=== PATIENT | male | born 1945 | race Caucasian/White ===

== ENCOUNTER → 2017-02-09 | Outpatient (CLI) | payer OTHER, MEDICARE | LOC: BHFA 10:30 | PROVIDERS: ATTEND Internal Medicine Cardiovascular Disease | DX: I10 Essential (primary) hypertension (principal); Z79.899 Other long term (current) drug therapy ==

== ENCOUNTER 2017-11-19 19:30 | Emergency (ER) | payer OTHER, MEDICARE ==
[2017-11-19] MEDS ORDERED: SILVER NITRATE APPLICATOR 1 APPL TP ONE (19:50)
[2017-11-19] MEDS ORDERED: OXYMETAZOLINE 30 ML NASAL SPRAY EACHNARE ONE (19:50)
[2017-11-19 19:52] VITALS: RESP 16
[2017-11-19] MEDS ORDERED: LIDOCAINE HCL 4% TOPICAL SOLN 50ML TP ONE ×3 (19:52→23:07)
--- NOTE | 2017-11-19 21:26 | EDPHY ---
H & P Smoking Status: Former smoker Time Seen by Provider: 11/19/17 19:46 HPI/ROS: This patient had a sinus surgery with Dr. Doshi this morning at 8:00 a.m. without complications. However he developed a bloody nose from the left naris this starting around 930 this morning with persistent bleeding throughout the day. The epistaxis did not resolve with Afrin nasal spray. He reports that he has had persistent bleeding since shortly after he came home from the sinus surgery. He placed a call to the on-call physician for [facility]NT but did not receive a call back. He denies any complaints other than the moderate bleeding from the left naris. He is able to breathe through both nostrils. ROS: Constitutional: No significant fatigue Cardiovascular: No significant lightheadedness or heart palpitations. No chest pain. HEENT minimal discomfort. No bleeding from the right naris. 5 point ROS is otherwise negative. (Antonio Ortega) Physical Exam: Physical Exam Vital signs are normal. General: No acute distress HEENT: Nose: Mild to moderate bleeding from the left knee dairy. On exam this is coming from an area posterior to the anterior septum. No bleeding from the right naris. Eyes: Pupils equal and react to light. Extraocular motions are intact. Lungs: No respiratory distress. Cardiac: Brisk capillary refill is intact throughout. Pulses are 2+ and symmetric in the affected extremity. Skin: No rash or pallor. Neuro: Alert and oriented x3 with no sensorimotor deficits. (Antonio Ortega ) Constitutional: Initial Vital Signs Temperature (C) 36.8 C 11/19/17 19:45 Heart Rate 55 L 11/19/17 19:45 Respiratory Rate 16 11/19/17 19:45 Blood Pressure 152/78 H 11/19/17 19:45 O2 Sat (%) 92 11/19/17 19:45 O2 Delivery Mode Room Air Allergies/Adverse Reactions: No Known Allergies Allergy (Unverified 11/19/17 20:50) Home Medications: Medication Instructions Recorded Amlodipine Besylate 11/19/17 Azithromycin [Zithromax] 250 mg PO DAILY #3 tab 11/19/17 Chlorthalidone 11/19/17 Clonidine 11/19/17 Crestor 11/19/17 Irbesartan 11/19/17 Spironolactone 11/19/17 ZYRTEC 11/19/17 Zocor 11/19/17 MDM/Departure - [facility] Procedures: Procedure: Epistaxis control. After verbal consent was obtained, the patient was anesthetized with [a 50-50 mix of 4% lidocaine with 1-1000 concentration epinephrine. I sprayed this the patient's nares using 10 mL transient 20-gauge Angiocath 2 mL in each nares. This was followed by soaking cotton ball on the same medication and placed in the right nares for 15 minutes. Epistaxis appears to be posterior to anterior septum. Patient had recurrence of bleeding after medications above so I then placed a rhino rocket 7.5 cm balloon to the left knee dairy in standard protocol. Patient tolerated this well. It was taped in place. Following the procedure the patient was re-examined and the bleeding was well controlled. There were no complications. The procedure was performed by myself. (Antonio Ortega) Medications Given: Discontinued Medications Azithromycin (Zithromax) 500 mg PO EDNOW ONE PRN Reason: Protocol Stop: 11/19/17 21:53 Last Admin: 11/19/17 22:11 Dose: 500 mg Epinephrine (Adrenalin Chloride) 10 mg NASAL EDNOW ONE Stop: 11/19/17 19:54 Last Admin: 11/19/17 20:57 Dose: Not Given Lidocaine HCl (Lidocaine Hcl 4% Topical Solution) 20 ml TP EDNOW ONE Stop: 11/19/17 19:53 Last Admin: 11/19/17 20:54 Dose: 1 btl Lidocaine HCl (Lidocaine Hcl 4% Topical Solution) 30 ml TP EDNOW ONE Stop: 11/19/17 19:53 Last Admin: 11/19/17 20:58 Dose: Not Given Lidocaine HCl (Lidocaine Hcl 4% Topical Solution) 1 ml TP EDNOW ONE Stop: 11/19/17 23:08 Last Admin: 11/19/17 23:13 Dose: Not Given Lidocaine/Epinephrine (Lidocaine 1%-Epi 1:100,000) 20 ml NB EDNOW ONE Stop: 11/19/17 23:08 Last Admin: 11/19/17 23:12 Dose: Not Given Lorazepam (Ativan 1 Mg Prepack#4) 1 btl TAKEHOME EDNOW ONE Stop: 11/19/17 21:57 Last Admin: 11/19/17 22:11 Dose: 1 btl Oxymetazoline HCl (Afrin Nasal [place]) 2 sprays EACHNARE EDNOW ONE Stop: 11/19/17 19:51 Last Admin: 11/19/17 20:56 Dose: Not Given Silver Nitrate/Potassium Nitrate (Silver Nitrate Applicator) 1 each TP EDNOW ONE Stop: 11/19/17 19:51 Last Admin: 11/19/17 20:56 Dose: 1 each ED Course/Re-evaluation: I Spoke with Dr. Saji Linares, ENT on-call for Dr. Manzanares who suggests expandable Merocel sponge or rhino rocket for hemostasis if other methods fail. The patient was discharged home but returned shortly thereafter due to right epistaxis Patient returned at 11:00 p.m. With epistaxis from the right naris a, hemostasis and left naris rhino rocket. I signed this case over to our oncoming physician Dr. Neftaly Gallegos who will treat the right epistaxis with the plan to transfer to the main emergency department if he is unable to control the right epistaxis as per earlier conversation with Dr. Linares (Antonio Ortega) Care was assumed at 2300 hr. The gentleman had left and once he got home, some 5 min away, he started bleeding again so he came right back. As chart was open I picked it up. Of note, I have had the opportunity to review the chart and discussed the case with Dr. Ortega. Just as it is indicated in the note, the only bleeding earlier had been the left nares. However once home in the right ear started bleeding. He was pretty in fact that it was not coming from the back of his throat but in fact the right nares. Upon arrival he has a make shift nasal tampon in place by way of Kleenex rolled and is holding in place and there is no active bleeding at this moment in time however the make shift nasal tampon is indeed as some blood at the proximal portion. Of note he has had no other bleeding problems in respect to bleeding other sources and easy bruising. The surgical case had involve both sides. He presents with a Epistat in the left nare, where there is no active bleeding. The patient had the surgery 1st thing this morning. He returned home and was eating and taking fluids well. He reports no lightheadedness nor sense of unsteadiness on his feet. His fluid intake and output has been normal. On my exam: Gen: Well developed, well nourished. Nontoxic. [afebrile] [VSS]. Pleasant, then, well-spoken man who is steady on his feet and has good color HEENT: Normocephalic. Nose: There is no active bleeding at this time. Left naris is occluded by a Epistat. The right knee air reveals some scab formation on the septum which is indeed straight, and there appears to be a dampness to 1 spot that is approximately 3 cm into the nares. It is not really bleeding at this time. The posterior pharynx reveals some mild amount of dried, old blood. Throat: Membranes are moist. Oropharynx is without erythema or exudate. Normal phonation. Neck: Trachea is in the ML. No laryngeal tenderness. Lungs: No air hunger. No respiratory distress. Skin: Good color, without pallor. There is no diaphoresis. Skin is warm and dry , without diaphoresis. There is a small amount of depression of the left nares by the Epistat anchor for the balloon and this will be adjusted. Epistaxis control: Nose was examined with a headlamp as well as nasal speculum. No active bleeding seen at this time except for the area in question as noted above. A midst of 3 cc of lidocaine 4% and 3 cc of 1% lidocaine with epi were aerosolized in the right ear. Over the ensuing 10 min he had recurrent bleeding. Thereafter a make shift nasal tampon of a 2 x 2 ruled on a band at forceps was placed into the right near this was soaked with 4 cc of a 50 50 mixture of the lidocaine 4% and 1% lidocaine with epinephrine. He tolerated this well. This was then removed in the area examined, again, this time there is no active bleeding. Has a dry base from prior cautery. His lab to wait for some 20 min again and was discharged with no active bleeding at this point in time. Should he have more bleeding while at home he is try Afrin as long as it is a small amount of bleeding, but then return in 20 min if it does not cease. (Neftaly Gallegos) - Depart Disposition: Home, Routine, Self-Care Clinical Impression: Postoperative sinus surgery epistaxis Condition: Good Instructions: Lorazepam (By mouth), Nosebleed (ED) Additional Instructions: Diagnosis: Epistaxis-resolved Plan: Humidifier Avoid blowing your nose You have a"rhino rocket" placed in your nose. Keep this in place for the next 3 days. Zithromax antibiotic for a few days to prevent infection Ativan at bedtime if needed for insomnia -1 mg. No driving, alcohol work on Ativan Follow up with Dr. Doshi on Wednesday or Wednesday for removal of the balloon. Return to [facility] Emergency Department if you develop bleeding despite treatment plan Prescriptions: Azithromycin [Zithromax] 250 mg PO DAILY #3 tab Referrals: Shane Starks MD [Primary Care Provider] - As per Instructions
[2017-11-19] MEDS ORDERED: AZITHROMYCIN 250 MG TAB PO ONE (21:52)
[2017-11-19] MEDS ORDERED: LORAZEPAM 1 MG PREPACK#4 BTL TAKEHOME ONE (21:56)
[2017-11-19] MEDS ORDERED: LIDO/EPI 1% **Not for Epidural 20 ML MDV ONE (23:05)
[2017-11-19] MEDS ORDERED: LIDOCAINE HCL 4% TOPICAL SOLN 50ML ONE (23:05)
[2017-11-19] MEDS ORDERED: LIDO/EPI 1% **Not for Epidural 20 ML MDV NB ONE (23:07)
[2017-11-20 00:39] VITALS: BP 142/75; PULSE 74; TEMP 97.7; O2SAT 94
== END 2017-11-20 00:38 | disposition home or self-care (01) ==
LOC: CED 19:30
PROC: 2Y41X5Z Packing of Nasal Region using Packing Material (ICD-10-PCS; principal; 2017-11-19)
DX: R04.0 Epistaxis (principal); J95.830 Postprocedural hemorrhage of a respiratory system organ or structure following a respiratory system procedure; Z87.891 Personal history of nicotine dependence
CPT/HCPCS: 30903; 99282; 99283; J0171

== ENCOUNTER 2017-11-20 10:05 | Emergency (ER) | payer OTHER, MEDICARE ==
[2017-11-20 10:19] VITALS: RESP 16; TEMP 97.2
--- NOTE | 2017-11-20 11:06 | EDPHY ---
H & P Time Seen by Provider: 11/20/17 10:12 HPI/ROS: CHIEF COMPLAINT: Epistaxis HISTORY OF PRESENT ILLNESS: Patient complaining of continued nosebleed. He had turbinates surgery yesterday morning and was seen in this ED twice last night. He currently has a rhino rocket in the left naris. He states it has continued to ooze. Contents of 10 point review of systems otherwise negative except for what is mentioned in HPI. General Appearance: Alert, no distress. Eyes: Pupils equal and round no pallor or injection. ENT, Mouth: Mucous membranes moist. Rhino rocket in place to the left knee where some oozing around it. Right near with area of cautery visible. No active bleeding. Posterior oropharynx with some blood-tinged mucus no active bleeding. Respiratory: There are no retractions, lungs are clear to auscultation. Cardiovascular: Regular rate and rhythm. Neurological: Awake and alert, nonfocal exam, cranial nerves intact. Skin: Warm and dry, no rashes. Musculoskeletal: Neck is supple nontender. Extremities are symmetrical, full range of motion, no edema. Psychiatric: Patient is oriented X 3, there is no agitation. Medical/surgical history: Turbinate surgery yesterday. Social history: Previous smoker Smoking Status: Former smoker Constitutional: Initial Vital Signs Temperature (C) 36.2 C 11/20/17 10:17 Heart Rate 53 L 11/20/17 10:17 Respiratory Rate 16 11/20/17 10:17 Blood Pressure 139/71 H 11/20/17 10:17 O2 Sat (%) 98 11/20/17 10:17 O2 Delivery Mode Room Air Allergies/Adverse Reactions: No Known Allergies Allergy (Unverified 11/19/17 20:50) Home Medications: Medication Instructions Recorded Amlodipine Besylate 11/19/17 Azithromycin [Zithromax] 250 mg PO DAILY #3 tab 11/19/17 Chlorthalidone 11/19/17 Clonidine 11/19/17 Crestor 11/19/17 Irbesartan 11/19/17 Spironolactone 11/19/17 ZYRTEC 11/19/17 Zocor 11/19/17 Medical Decision Making ED Course/Re-evaluation: Discussed in detail with Dr. Linares who had been consulted yesterday at the time of patient's ED visit then. He agreed to see patient over at [facility] ED if transferred. Discussed options with patient he will go by private vehicle but wants to be seen by consulted today. Discussed with Dr. Edwards at [facility] ED who accepts patient in transfer. Differential Diagnosis: Differential diagnosis includes but is not limited to anterior epistaxis, posterior epistaxis, postsurgical complication/infection. Patient hemodynamically stable in the emergency department with no active bleeding. Patient is not on blood thinners and has held his baby aspirin over the last 48 hr. Continue bleeding likely represents normal postsurgical sequelae. Patient asking for consultation with ENT and was transferred by private vehicle to [facility] ED for further evaluation. Departure - Departure Disposition: Home, Routine, Self-Care Clinical Impression: Epistaxis, recurrent Referrals: Sarthak Singh MD [Medical Doctor] - As per Instructions
[2017-11-20 12:00] VITALS: BP 132/75; PULSE 50; O2SAT 96
--- NOTE | 2017-11-20 12:12 | EDPHY ---
ED Progress Note Narrative: The patient no active significant bleeding in the emergency department. He has a nasal packing in place and will follow up with his ENT physician on Wednesday. He did not receive a comprehensive evaluation in the emergency department.
== END 2017-11-20 12:18 | disposition home or self-care (01) ==
LOC: CED 10:05
DX: R04.0 Epistaxis (principal); Z87.891 Personal history of nicotine dependence

== ENCOUNTER → 2018-02-25 | Outpatient (CLI) | payer OTHER, MEDICARE ==
[~2018-02-25] MED LIST: IOPAMIDOL (ISOVUE 370) 100 ML BTL IV ONE
== END ==
LOC: FIMAGING 10:58
PROVIDERS: ATTEND Internal Medicine Cardiovascular Disease
DX: J32.0 Chronic maxillary sinusitis (principal); G31.9 Degenerative disease of nervous system, unspecified; I65.23 Occlusion and stenosis of bilateral carotid arteries; R91.1 Solitary pulmonary nodule; I25.10 Atherosclerotic heart disease of native coronary artery without angina pectoris; M50.30 Other cervical disc degeneration, unspecified cervical region; M48.02 Spinal stenosis, cervical region
CPT/HCPCS: 70450; 70496; 70498; Q9967; 82565-PO

== ENCOUNTER 2018-02-26 13:30 | Inpatient (IN) | payer OTHER, MEDICARE ==
[2018-02-26] MEDS ORDERED: HEPARIN 10,000 UNIT/10 ML MDV (1,000 UNIT/ML) IVP ONE ×2 (14:03→14:45)
--- NOTE | 2018-02-26 14:11 | SOAPPROG ---
SOAP Progress Note Assessment/Plan: Assessment: 72-year-old male with recent bout of amaurosis in the right eye/he has had no other symptoms CTA reveals 90% plus left carotid stenosis and a 80% plus right carotid stenosis Past history includes a coronary stents x3 several years ago/no other major hospitalizations or surgeries problems Review of systems is negative on a full 10 point review of systems except as related to the HPI. Specifically he is an ex-smoker over 20 years ago and he does have hypertension Allergies none Medications amlodipine, clonidine, aspirin, Crestor, Zetia, spironolactone, chlorthalidone, irbesartan HEENT without bruits, no cervical masses or adenopathy Chest clear Cor regular rhythm without murmurs Abdomen soft nontender Extremities benign with full range of motion full pulses Neuro exam physiologic and symmetric Psych alert oriented and cooperative Skin no obvious lesions Plan: Admit for IV heparin, medical evaluation, left carotid endarterectomy on Wednesday02/26/18 14:07 ICD10 Worksheet Patient Problems: Problems Problem Status Onset Carotid stenosis, bilateral Acute - ICD10 Problem Qualifiers (1) Carotid stenosis, bilateral
[2018-02-26] MEDS ORDERED: D5W 1/2 NS W/ 20 KCl/L 1,000 ML IV SCH (14:15)
[2018-02-26] MEDS ORDERED: HEPARIN 10,000 UNIT/10 ML MDV (1,000 UNIT/ML) IVP PRN ×2 (14:31→14:33)
[2018-02-26 14:36] LABS: PLATELET COUNT 262 10^3/uL (150-400)
[2018-02-26 14:55] LABS: INR 0.94 (0.83-1.16); PROTIME(PATIENT) 12.8 SEC (12.0-15.0)
[2018-02-26] MEDS: HEPARIN/DEXTROSE 500 ML IV SCH (15:07)
--- NOTE | 2018-02-26 15:26 | PDMN ---
Medical Necessity Medical necessity: C/M review: est. > 2 MN LOS for eval and TX of acute and persistent left carotid stenosis, recent bout of amaurosis right - patient has no other symptoms, CTA reveals 90% plus left carotid stenosis and 80% stenosis plus right carotid stenosis requiring planned Hospitalist consult for medical evaluation, planned 02/28/2018 surgery - left carotid endarterectomy - Inpatient surgery per Medicare guidelines, ongoing IV Heparin infusion, IV fluids in SDU, comorbid history coronary stents x 3 several years ago per General Surgery progress note.
--- NOTE | 2018-02-26 17:42 | CPEKG ---
Heart Rate: 50 RR Interval: 1200 P-R Interval: 188 QRSD Interval: 104 QT Interval: 440 QTC Interval: 402 P Purling: 65 QRS Purling: 36 T Wave Purling: 63 EKG Severity - BORDERLINE ECG - EKG Impression: SINUS RHYTHM EKG Impression: BORDERLINE T ABNORMALITIES, ANT-LAT LEADS Electronically Signed By: Saeid Schwab 28-Feb-2018 05:51:30
--- NOTE | 2018-02-26 18:20 | GCON ---
[f rep st] CONSULTATION DATE OF CONSULTATION: 02/26/2018 REASON FOR CONSULTATION: I was asked by Dr. Clements to see Mr. Raymundo in regard to his medical issues. HISTORY OF PRESENT ILLNESS: This is a 72-year-old man who presents after having a TIA a. This occur red Wednesday. If it is described as a window pane covering his entire right eye consistent with amauro sis. This resolved after a few minutes. He saw his 's lubricator granulator who thought that he may h ave had a TIA, recommended that he contact his primary care physician. He follows with [facility] Wall for heart disease, called Dr. Wall. A CT angio of his head and neck was ordered which was positive . He is thus arranged for a direct admission to Dr. Clements. He has never had a stroke before. He randall d no weakness or numbness or confusion or garbled speech associated with this event. He is taking as pirin for heart disease. He tells me he has never had a problem with hyperlipidemia. He continues to run. He is able to get his heart rate up without shortness of breath, or chest pain. PAST MEDICAL HISTORY: 1. Hypertension, well controlled on medications. 2. Coronary artery disease, status post PCI x3 to the LAD in 2000. 3. Bone spur removal. 4. Lasix surgery. 5. Recent sinus surgery. MEDICATIONS: Please see medication reconciliation. ALLERGIES: No known drug allergies. FAMILY HISTORY: Reviewed, noncontributory. SOCIAL HISTORY: He quit drinking in 1998. He quit smoking in 1978. REVIEW OF SYSTEMS: A 10-point review of systems is conducted and is negative except per HPI. PHYSICAL EXAM: VITAL SIGNS: Blood pressure 157/81, heart rate 52, respiration rate 14, saturating 9 7% on room air. Temperature is 37.3. GENERAL: Mr. Raymundo is a pleasant man who is resting comfortabl y. No acute distress. HEENT: Shows him to be normocephalic, atraumatic. CARDIOVASCULAR: Regular rate and rhythm. No murmurs, rubs, or gallops. PULMONARY: Lungs clear to auscultation bilaterally. ABDOMEN: Soft, nontender, nondistended. SKIN: Shows no rash. : No Mathew. NEUROLOGIC: Shows cranial nerves 2 through 12 to be intact. He is alert, oriented x3. Motor is intact in the upper a nd lower extremities. Sensation to light touch is intact in the upper and lower extremities. Patell ar reflexes are diminished, but symmetric bilaterally. PSYCHIATRIC: Shows normal mood and affect. LABS: CBC is normal. INR 0.94. His chemistries were rejected. DATA: 1. I reviewed his chart including Dr. Clements' an admission note. 2. I reviewed his CT angiogram this shows almost near occlusion of the left internal carotid as well as 70% of the right. 3. TIA with severe carotid artery stenosis: Agree that CEA is indicated. He will be on a heparin d rip until then. He will get q.4 hours neuro checks. CEA is planned for Wednesday. Initial plan will b e left-sided CEA Wednesday, then in 2 and a half weeks right-sided CEA. He is currently not taking aspi rin, would confirm tomorrow with Dr. Clements whether he should be on aspirin in addition to heparin tobi sigala. I will check lipids in the morning. 4. Coronary artery disease, status post PCI to the LAD: He is able to attain a high heart rate with out any angina or shortness of breath. Based on this we will get an EKG. There were no significant issues with his EKG, he should proceed to surgery with no additional cardiac workup at this time. 5. Hypertension: Will continue his antihypertensive. 6. Pulmonary nodule seen on the CT angio: This will need to be followed as an outpatient. /[id number]/MODL
[2018-02-26] MEDS ORDERED: amLODIPine BESYLATE 5 MG TAB PO SCH (21:00)
[2018-02-26] MEDS ORDERED: IRBESARTAN 150 MG TAB PO SCH (21:00)
[2018-02-26] MEDS ORDERED: ROSUVASTATIN CALCIUM 20 MG TAB PO SCH (21:00)
[2018-02-26] MEDS ORDERED: EZETIMIBE 10 MG TAB PO SCH (21:00)
[2018-02-26] MEDS: traZODone 50 MG TAB PO SCH (21:16)
[2018-02-26] MEDS: IPRATROPIUM 0.06% NASAL SPRAY EACHNARE SCH (21:20)
[2018-02-27] MEDS: IRBESARTAN 150 MG TAB PO SCH ×2 (08:25→19:23)
[2018-02-27] MEDS: CHLORTHALIDONE 25 MG TAB PO SCH (08:25)
[2018-02-27] MEDS: SPIRONOLACTONE 50 MG TAB PO SCH (08:25)
[2018-02-27] MEDS: IPRATROPIUM 0.06% NASAL SPRAY EACHNARE SCH ×2 (08:27→21:02)
--- NOTE | 2018-02-27 11:23 | GCON ---
[f rep st] CONSULTATION PEDIATRIC PHYSICAL THERAPY ASSISTANT CONSULTATION REASON FOR CONSULTATION: Vision loss, carotid stenosis. HISTORY OF PRESENT ILLNESS: the patient is a very pleasant 72-year-old white male with a past medica l history of coronary artery disease for which he underwent stent placement, hypertension. He presen ts after having a TIA. Apparently, this occurred Wednesday with amaurosis fugax of the right eye. 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 CT angio of the head and neck were ordered, which were positive for carotid occlusion. He was admitted to the intensive care unit and placed on a heparin drip. Currently, he is resting comfortably and feels quite well. He denies any cough or production of sput um. There is no chest pain, pleuritic-type chest pain or angina equivalent. There is no fever or ni ght sweats. REVIEW OF SYSTEMS: 10-point review of systems was performed, is negative, except for what is listed in HPI. PAST MEDICAL HISTORY: Significant for hypertension, coronary artery disease. PAST SURGICAL: Cardiac stents x3, bone spur removal, Lasix surgery, and recent sinus surgery. ALLERGIES: No known to medications. SOCIAL HISTORY: Previous heavy smoker, none since 1978. Denies any alcohol use. He is , has good family support. PHYSICAL EXAMINATION: VITAL SIGNS: Blood pressure is 131/69, pulse is 50, respirations 15, temperat ure 36.6, oxygen saturation is 96% on room air. GENERAL: He is a well-developed, well-nourished, 72 -year-old white male who is resting comfortably in no acute distress. HEENT: Eyes: [place]. EOMI. T hroat shows no erythema or tonsillar hypertrophy. NECK: Supple. No cervical adenopathy. HEART: R egular rate and rhythm without murmurs, rubs, or gallops. LUNGS: Diminished breath sounds, but no w heeze. ABDOMEN: Soft, nontender. Bowel sounds are present in all 4 quadrants. EXTREMITIES: No cl ubbing, cyanosis, or edema. LABORATORY DATA: White count is 8.9, hemoglobin 15, hematocrit 42, platelet count is 262. INR is 0. 94. Sodium 129, potassium 4.0, chloride 97, CO2 is 20, BUN 23, creatinine is 0.7, glucose is 97. IMPRESSION: 1. Amaurosis fugax. 2. Transient ischemic attack. 3. Carotid stenosis bilaterally. 4. History of coronary artery disease. 5. History of hypertension. RECOMMENDATIONS: 1. Agree with anticoagulation with heparin. 2. Patient is scheduled for carotid endarterectomy tomorrow. 3. DVT and PE prophylaxis. 4. Stress ulcer prophylaxis. /[id number]/MODL
--- NOTE | 2018-02-27 12:22 | SOAPPROG ---
DEREK Progress Note Assessment/Plan: Assessment: 72-year-old male with recent bout of amaurosis in the right eye/he has had no other symptoms CTA reveals 90% plus left carotid stenosis and a 80% plus right carotid stenosis Past history includes a coronary stents x3 several years ago/no other major hospitalizations or surgeries problems Review of systems is negative on a full 10 point review of systems except as related to the HPI. Specifically he is an ex-smoker over 20 years ago and he does have hypertension Allergies none Medications amlodipine, clonidine, aspirin, Crestor, Zetia, spironolactone, chlorthalidone, irbesartan HEENT without bruits, no cervical masses or adenopathy Chest clear Cor regular rhythm without murmurs Abdomen soft nontender Extremities benign with full range of motion full pulses Neuro exam physiologic and symmetric Psych alert oriented and cooperative Skin no obvious lesions Plan: Admit for IV heparin, medical evaluation, left carotid endarterectomy on Wednesday02/26/18 14:07 02/27/18 12:20 no new symptoms or findings/cleared by Internal Medicine for his carotid surgery / risks and options fully discussed and he wishes to proceed Mild hyponatremia at 129 Plan left carotid endarterectomy in the a.m. / right carotid endarterectomy in 2 -3 weeks Objective: Vital Signs Temp Pulse Resp BP Pulse Ox 36.9 C 54 L 16 101/55 L 96 02/27/18 12:00 02/27/18 12:00 02/27/18 12:00 02/27/18 12:00 02/27/18 12:00 Laboratory Results 02/26/18 14:30 02/27/18 04:20 02/26/18 02/27/18 02/28/18 05:59 05:59 05:59 Intake Total 1376 Output Total 875 200 Balance 501 -200 PT 12.8 SEC (12.0-15.0) 02/26/18 14:30 INR 0.94 (0.83-1.16) 02/26/18 14:30 ICD10 Worksheet Patient Problems: Problems Problem Status Onset Carotid stenosis, bilateral Acute - ICD10 Problem Qualifiers (1) Carotid stenosis, bilateral
[2018-02-27] MEDS: HEPARIN/DEXTROSE 500 ML IV SCH (14:03)
--- NOTE | 2018-02-27 14:26 | HOSPPROG ---
Hospitalist Progress Note Assessment/Plan: 72 yo M with hx of TIA found to have bilateral carotid stenosis here for planned CEA # bilateral carotid stenosis: with near total occlusion of left ICA and 70% stenosis of the right, plan for CEA in am, on heparin gtt for now and monitoring in SDU # TIA: in the setting of above and with sxs of amaurosis fugax as presentation, as above # CAD: hx of PCI to LAD, no current chest pain, continue on statin # HTN: BP currently on the low end on his current regimen of clonidine, irbesartan and amlodipine, will monitor # pulmonary nodule---will require op f/u # IP status, will need > 48 hours stay given need for surgical intervention Care plan reviewed with Dr. Marie Subjective: no significant overnight events, patient feeling well Objective: Vital Signs Temp Pulse Resp BP Pulse Ox 36.9 C 54 L 16 101/55 L 96 02/27/18 12:00 02/27/18 12:00 02/27/18 12:00 02/27/18 12:00 02/27/18 12:00 Laboratory Results 02/26/18 14:30 02/27/18 04:20 02/26/18 02/27/18 02/28/18 05:59 05:59 05:59 Intake Total 1376 Output Total 875 200 Balance 501 -200 PT 12.8 SEC (12.0-15.0) 02/26/18 14:30 INR 0.94 (0.83-1.16) 02/26/18 14:30 awake alert nad anicteric op clear rrr no mrg cta b soft nt nd no cce warm dry well perfused oriented appropriate - Time Spent With Patient Time Spent with Patient: greater than 35 minutes Time Spent with Patient: Greater than 35 minutes spent on this patients care, greater than 50% of time spent counseling, educating, and coordinating care regarding the above mentioned plan. ICD10 Worksheet Patient Problems: Problems Problem Status Onset Carotid stenosis, bilateral Acute
[2018-02-27] MEDS: amLODIPine BESYLATE 5 MG TAB PO SCH (19:23)
[2018-02-27] MEDS: ROSUVASTATIN CALCIUM 20 MG TAB PO SCH (19:25)
[2018-02-27] MEDS: EZETIMIBE 10 MG TAB PO SCH (19:25)
[2018-02-27] MEDS: traZODone 50 MG TAB PO SCH (21:00)
[2018-02-28] MEDS: CHLORTHALIDONE 25 MG TAB PO SCH (07:50)
[2018-02-28] MEDS: SPIRONOLACTONE 50 MG TAB PO SCH (07:51)
[2018-02-28] MEDS: IRBESARTAN 150 MG TAB PO SCH ×2 (07:51→18:04)
--- NOTE | 2018-02-28 09:36 | SOAPPROG ---
DEREK Progress Note Assessment/Plan: Assessment: 72 y/o M 72-year-old male with recent bout of amaurosis in the right eye CTA reveals 90% plus left carotid stenosis and a 80% plus right carotid stenosis S: Sitting up in chair. No complaints. Denies stroke like symptoms. O: Alert Afebrile Neuro: CN 2-12 grossly intact Plan: Left CEA later today. Options and risks have been fully discussed and pt wishes to proceed. Ok to continue heparin drip up until surgery. 02/28/18 09:33 Objective: Vital Signs Temp Pulse Resp BP Pulse Ox 36.9 C 64 20 144/79 H 97 02/28/18 07:38 02/28/18 07:38 02/28/18 07:38 02/28/18 07:38 02/28/18 07:38 Laboratory Results 02/28/18 04:20 02/27/18 04:20 02/27/18 02/28/18 03/01/18 05:59 05:59 05:59 Intake Total 1376 1493 Output Total 875 200 Balance 501 1293 PT 12.8 SEC (12.0-15.0) 02/26/18 14:30 INR 0.94 (0.83-1.16) 02/26/18 14:30 ICD10 Worksheet Patient Problems: Problems Problem Status Onset Carotid stenosis, bilateral Acute
[2018-02-28] MEDS ORDERED: ceFAZolin 2 GM/DEXTROSE 100 ML IV ONE (10:00)
[2018-02-28] MEDS ORDERED: BUPIVACAINE 0.25% 30 ML SDV ONE (10:27)
[2018-02-28] MEDS ORDERED: THROMBIN (BOVINE) 20,000 UNIT SPRAY TP ONE (10:27)
[2018-02-28] MEDS ORDERED: PROTAMINE SULFATE 50 MG/5 ML VIAL IVP ONE (10:27)
[2018-02-28] MEDS ORDERED: LR 1,000 ML IV ONE (10:40)
--- NOTE | 2018-02-28 11:39 | PDANEPAE ---
ANE Past Medical History - Pulmonary History Hx Oxygen in Use at Home: No Hx Sleep Apnea: No Sleep Apnea Screening Result - Last Documented: Negative - Endocrine History Hx Diabetes: No - Chronic Pain History Chronic Pain: No ANE Review of Systems Review of Systems: ANE Patient History - Allergies Allergies/Adverse Reactions: No Known Allergies Allergy (Unverified 11/19/17 20:50) - Home Medications Home Medications: Chlorthalidone [Chlorthalidone 25 mg (*)] 50 mg PO DAILY 02/26/18 [Last Taken ] Ipratropium 0.06% Nasal [Atrovent 0.06% Nasal] 1 spray EACHNARE BID 02/26/18 [ Last Taken 02/26/18] Irbesartan [Avapro 150 mg (*)] 150 mg PO BID@02/26/18 [Last Taken 02/26/18 ] Rosuvastatin Calcium [Crestor 20mg (*)] 20 mg PO DAILY@02/26/18 [Last Taken 02/25/18] Spironolactone [Aldactone 50 MG (RX)] 50 mg PO DAILY 02/26/18 [Last Taken ] Zetia 10 MG (*) 10 mg PO DAILY@02/26/18 [Last Taken 02/26/18] amLODIPine BESYLATE [Norvasc 2.5 mg (*)] 2.5 mg PO DAILY@02/26/18 [Last Taken 02/25/18] clonIDINE [Catapres (*)] 0.1 mg PO DAILY@0702/26/18 [Last Taken 02/26/18] clonIDINE [Catapres (*)] 0.2 mg PO DAILY@1900 02/26/18 [Last Taken 02/25/18] - NPO status NPO Since - Liquids (Date): 02/28/18 NPO Since - Liquids (Time): 00:01 NPO Since - Solids (Date): 02/28/18 NPO Since - Solids (Time): 00:01 - Smoking Hx Smoking Status: Former smoker ANE Labs/Vital Signs - Labs Result Diagrams: 02/28/18 04:20 02/27/18 04:20 - Vital Signs Blood Pressure: 142/82 Heart Rate: 54 Respiratory Rate: 18 O2 Sat (%): 98 Height: 175.26 cm Weight: 73.9 kg ANE Physical Exam - Airway Neck exam: FROM Mallampati Score: Class 2 Mouth exam: normal dental/mouth exam - Pulmonary Pulmonary: no respiratory distress - Cardiovascular Cardiovascular: regular rate and rhythym, carotid bruit (art. line) - ASA Status ASA Status: III ANE Anesthesia Plan Anesthesia Plan: general endotracheal anesthesia Lines/Monitors: arterial line
[2018-02-28] MEDS ORDERED: HEPARIN 10,000 UNIT/10 ML MDV (1,000 UNIT/ML) ONE (11:44)
[2018-02-28] MEDS ORDERED: ROCURONIUM 100 MG/10 ML VIAL ONE (11:44)
[2018-02-28] MEDS ORDERED: METOCLOPRAMIDE 10 MG/2 ML VIAL ONE (11:44)
[2018-02-28] MEDS ORDERED: DEXAMETHASONE 4 MG/ML VIAL ONE ×2 (11:44)
[2018-02-28] MEDS ORDERED: LIDOCAINE 2% 100 MG/5 ML SYR ONE (11:44)
[2018-02-28] MEDS ORDERED: PROPOFOL 200 MG/20 ML VIAL ONE (11:44)
--- NOTE | 2018-02-28 11:59 | HOSPPROG ---
Hospitalist Progress Note Assessment/Plan: 72 yo M with hx of TIA found to have bilateral carotid stenosis here for planned CEA # bilateral carotid stenosis: with near total occlusion of left ICA and 70% stenosis of the right, s/p Left CEA and doing well thus far # TIA: in the setting of above and with sxs of amaurosis fugax as presentation, as above # CAD: hx of PCI to LAD, no current chest pain, continue on statin # HTN: BP currently on the low end on his current regimen of clonidine, irbesartan and amlodipine, will monitor # pulmonary nodule---will require op f/u # IP status, will need > 48 hours stay given need for surgical intervention Subjective: patient s/p CEA somnoeltn post procedure Objective: Vital Signs Temp Pulse Resp BP Pulse Ox 37.0 C 54 L 18 142/82 H 98 02/28/18 08:47 02/28/18 11:39 02/28/18 11:39 02/28/18 11:39 02/28/18 11:39 Laboratory Results 02/28/18 04:20 02/27/18 04:20 02/27/18 02/28/18 03/01/18 05:59 05:59 05:59 Intake Total 1376 1493 Output Total 875 200 Balance 501 1293 PT 12.8 SEC (12.0-15.0) 02/26/18 14:30 INR 0.94 (0.83-1.16) 02/26/18 14:30 somnolent post procedure anicteric rrr no mrg cta b ICD10 Worksheet Patient Problems: Problems Problem Status Onset Carotid stenosis, bilateral Acute
[2018-02-28] MEDS ORDERED: THROMBIN (BOVINE) 5,000 UNIT VIAL TP ONE (13:35)
[2018-02-28] MEDS ORDERED: SUGAMMADEX SODIUM 200 MG/2 ML VIAL IVP ONE (13:38)
[2018-02-28] MEDS ORDERED: ENALAPRILAT DIHYDRATE 1.25 MG/ML VIAL IVP PRN (13:57)
--- NOTE | 2018-02-28 14:04 | POSTOPPROG ---
Post Op Note Date of Operation: 02/28/18 Surgeon: Yordan Clements Cold Type Artist: Laura Hollins Anesthesiologist: Raman Beebe Anesthesia: GET(General Endotracheal) Pre-op Diagnosis: critical R>L carotid stenosis Post-op Diagnosis: same Procedure: L CEA c EEG monitoring and cervical LN bx Findings: long significant plaque, >90% stenosis, several areas of ulceration Inf/Abcess present in the surg proc area at time of surgery?: No EBL: 50-100 Complications: none Specimen(s): plaque and LN to pathology
[2018-02-28] MEDS ORDERED: fentaNYL 100 MCG/2 ML INJ IVP PRN (14:11)
[2018-02-28] MEDS ORDERED: ONDANSETRON 4 MG/2 ML VIAL IVP PRN (14:11)
[2018-02-28] MEDS ORDERED: NALOXONE HCL 0.4 MG/ML INJ IVP PRN (14:11)
[2018-02-28] MEDS ORDERED: ENALAPRILAT DIHYDRATE 1.25 MG/ML VIAL ONE (14:11)
[2018-02-28] MEDS ORDERED: ALBUTEROL 3 ML DEYVIAL IH PRN (14:11)
--- NOTE | 2018-02-28 14:13 | POSTANESTH ---
Post Anesthetic Evaluation Cardiovascular Status: Similar to Pre-Op Cond Respiratory Status: Similar to Pre-op Cond. Level of Consciousness/Mental Status: Alert and Oriented Pain Control: Adequate, Prn Tx Ordered Nausea/Vomiting Control: Adequate, Prn Tx Ordered Complications Possibly Related to Anesthesia: None Noted
[2018-02-28] MEDS: IPRATROPIUM 0.06% NASAL SPRAY EACHNARE SCH ×2 (15:17→22:44)
--- NOTE | 2018-02-28 16:21 | ASMTCMCOM ---
CM Note CM Note Notes: Pt was admitted with bilateral carotid stenosis and is s/p a CEA. He has a hx of TIA. No PT/OT orders. Pt lives with his in [place]. CM will follow for any d/c needs. Date Signed: 02/28/2018 04:20 PM Electronically Signed By:EMMA Rodney
[2018-02-28] MEDS: ROSUVASTATIN CALCIUM 20 MG TAB PO SCH (18:05)
[2018-02-28] MEDS: amLODIPine BESYLATE 5 MG TAB PO SCH (18:05)
[2018-02-28] MEDS: EZETIMIBE 10 MG TAB PO SCH (18:05)
[2018-02-28] MEDS ORDERED: ONDANSETRON 4 MG/2 ML VIAL ONE (18:26)
[2018-02-28] MEDS ORDERED: ONDANSETRON 4 MG/2 ML VIAL IVP ONE (18:45)
[2018-02-28] MEDS: traZODone 50 MG TAB PO SCH (22:12)
[2018-03-01] MEDS: SPIRONOLACTONE 50 MG TAB PO SCH (08:00)
[2018-03-01] MEDS: IPRATROPIUM 0.06% NASAL SPRAY EACHNARE SCH (08:01)
[2018-03-01] MEDS: CHLORTHALIDONE 25 MG TAB PO SCH (08:01)
[2018-03-01] MEDS: IRBESARTAN 150 MG TAB PO SCH ×2 (08:01→18:22)
[2018-03-01] MEDS: ASPIRIN 325 MG TAB PO SCH (08:34)
[2018-03-01] MEDS ORDERED: CEPACOL LOZENGE PO PRN (09:46)
[2018-03-01] MEDS ORDERED: SODIUM CHLORIDE 1,000 MG TAB PO ONE (10:45)
[2018-03-01] MEDS: ROSUVASTATIN CALCIUM 20 MG TAB PO SCH (18:18)
[2018-03-01] MEDS: SODIUM CHLORIDE 1,000 MG TAB PO SCH (18:19)
[2018-03-01] MEDS: EZETIMIBE 10 MG TAB PO SCH (18:24)
[2018-03-01] MEDS: amLODIPine BESYLATE 5 MG TAB PO SCH (18:24)
--- NOTE | 2018-03-01 18:24 | SOAPPROG ---
SOAP Progress Note Assessment/Plan: Assessment: 72-year-old male with recent bout of amaurosis in the right eye/he has had no other symptoms CTA reveals 90% plus left carotid stenosis and a 80% plus right carotid stenosis Past history includes a coronary stents x3 several years ago/no other major hospitalizations or surgeries problems Review of systems is negative on a full 10 point review of systems except as related to the HPI. Specifically he is an ex-smoker over 20 years ago and he does have hypertension Allergies none Medications amlodipine, clonidine, aspirin, Crestor, Zetia, spironolactone, chlorthalidone, irbesartan HEENT without bruits, no cervical masses or adenopathy Chest clear Cor regular rhythm without murmurs Abdomen soft nontender Extremities benign with full range of motion full pulses Neuro exam physiologic and symmetric Psych alert oriented and cooperative Skin no obvious lesions Plan: Admit for IV heparin, medical evaluation, left carotid endarterectomy on Wednesday02/26/18 14:07 02/27/18 12:20 no new symptoms or findings/cleared by Internal Medicine for his carotid surgery / risks and options fully discussed and he wishes to proceed Mild hyponatremia at 129 Plan left carotid endarterectomy in the a.m. / right carotid endarterectomy in 2 -3 weeks 03/01/18 18:22 DOING WELL FROM SURGERY/ NEURO INTACT/ WOUND OK/ AFEBRILE/ EATING WELL NEW PROBLEM WITH ASYMPTOMATIC HYPONATREMIA, NA 120/ PLAN SALT TABS, FLUID RESTRICTIONS Objective: Vital Signs Temp Pulse Resp BP Pulse Ox 37.0 C 60 18 166/80 H 94 03/01/18 16:43 03/01/18 16:43 03/01/18 16:43 03/01/18 16:43 03/01/18 16:43 Laboratory Results 02/28/18 04:20 03/01/18 14:10 02/28/18 03/01/18 03/02/18 05:59 05:59 05:59 Intake Total 1493 1220 550 Output Total 200 680 750 Balance 1293 540 -200 PT 12.8 SEC (12.0-15.0) 02/26/18 14:30 INR 0.94 (0.83-1.16) 02/26/18 14:30 ICD10 Worksheet Patient Problems: Problems Problem Status Onset Carotid stenosis, bilateral Acute - ICD10 Problem Qualifiers (1) Carotid stenosis, bilateral
[2018-03-01] MEDS: traZODone 50 MG TAB PO SCH (21:42)
[2018-03-02] MEDS: IPRATROPIUM 0.06% NASAL SPRAY EACHNARE SCH ×2 (00:43→10:21)
--- NOTE | 2018-03-02 06:24 | HOSPPROG ---
Hospitalist Progress Note Assessment/Plan: 72 yo M with hx of TIA found to have bilateral carotid stenosis here for planned CEA # bilateral carotid stenosis: with near total occlusion of left ICA and 70% stenosis of the right, s/p Left CEA and doing well thus far # hyponatremia: acute on chronic, at baseline takes salt tabs intermittently and has a Na that runs in the high 120s, post op Na of 120. Does take chlorthalidone chronically which is likely contributing to his chronic hyponatremia and also urine studies c/w SIADH. Will hold diuretic, fluid restriction, salt tabs TID. When Na > 127 likely ok to dc home. # TIA: in the setting of above and with sxs of amaurosis fugax as presentation, as above # CAD: hx of PCI to LAD, no current chest pain, continue on statin # HTN: BP currently on the low end on his current regimen of clonidine, irbesartan and amlodipine, will monitor # pulmonary nodule---will require op f/u # IP status, will need > 48 hours stay given need for surgical intervention Care plan reviewed with Dr. Moore and patients present at bedside. Subjective: no significant events, doing well, no issues swallowing Objective: Vital Signs Temp Pulse Resp BP Pulse Ox 37.0 C 54 L 16 124/61 H 94 03/01/18 22:50 03/01/18 22:50 03/01/18 22:50 03/01/18 22:50 03/01/18 22:50 Laboratory Results 02/28/18 04:20 03/02/18 05:25 03/01/18 03/02/18 03/03/18 05:59 05:59 05:59 Intake Total 1220 550 Output Total 680 750 Balance 540 -200 PT 12.8 SEC (12.0-15.0) 02/26/18 14:30 INR 0.94 (0.83-1.16) 02/26/18 14:30 awake alert anicteric op clear rrr no mrg cta b soft nd nt no cce - Time Spent With Patient Time Spent with Patient: greater than 35 minutes Time Spent with Patient: Greater than 35 minutes spent on this patients care, greater than 50% of time spent counseling, educating, and coordinating care regarding the above mentioned plan. ICD10 Worksheet Patient Problems: Problems Problem Status Onset Carotid stenosis, bilateral Acute
[2018-03-02] MEDS: SODIUM CHLORIDE 1,000 MG TAB PO SCH (07:16)
[2018-03-02] MEDS: IRBESARTAN 150 MG TAB PO SCH (07:17)
[2018-03-02] MEDS: ASPIRIN 325 MG TAB PO SCH (07:19)
[2018-03-02 07:23] VITALS: BP 122/75
--- NOTE | 2018-03-02 09:55 | SOAPPROG ---
SOAP Progress Note Assessment/Plan: Assessment: 72 y/o M 72-year-old male s/p Left CEA POD #2 Hyponatremia- Na up to 124 from 121 yesterday. S: Sitting up in chair in street clothes. Has not required any narcotic pain meds. Describes incision as "sore". No other complaints. Eager to be discharged. Reports that he has chronic hyponatremia and has never experienced symptoms. O: Alert and oriented Afebrile HENT: normocephalic, pupils equal and round Neck: left side incision is intact with steri strips over it. Cdi. No increased WOB Neuro: CN 2-12 grossly intact Plan: Discussed with hospitalist. Original plan was to wait for Na to come up to 127 prior to discharge, but since this is a chronic problem and he is asymptomatic, we will discharge him and follow closely as an outpt. Plan for dispo home today and follow up labs tomorrow. Follow up in office on Wednesday. 03/02/18 09:50 Objective: Vital Signs Temp Pulse Resp BP Pulse Ox 37.0 C 62 16 122/75 H 95 03/01/18 22:50 03/02/18 07:22 03/02/18 07:22 03/02/18 07:22 03/02/18 07:22 Laboratory Results 02/28/18 04:20 03/02/18 05:25 03/01/18 03/02/18 03/03/18 05:59 05:59 05:59 Intake Total 1220 550 Output Total 680 750 Balance 540 -200 PT 12.8 SEC (12.0-15.0) 02/26/18 14:30 INR 0.94 (0.83-1.16) 02/26/18 14:30 ICD10 Worksheet Patient Problems: Problems Problem Status Onset Carotid stenosis, bilateral Acute
[2018-03-02] MEDS: SPIRONOLACTONE 50 MG TAB PO SCH (10:21)
--- NOTE | 2018-03-02 11:34 | ASMTLACE ---
LACE Length of stay for Answers: 4-6 days current admission Acuity / Level of Answers: Yes Care: Did the patient have an inpatient admission? Comorbidities - select Answers: Cerebrovascular disease all that apply (CVA, TIA, aneurysms, vasc ular dementia) Coronary Artery Disease Other Notes: HTN # of Emergency department Answers: 1-2 visits in the last 6 months Score: 12 Date Signed: 03/02/2018 11:33 AM Electronically Signed By:Taylor Martinez RN
--- NOTE | 2018-03-02 11:36 | ASMTCMCOM ---
CM Note CM Note Notes: Spoke w/RN, pt will dc w/support of , no needs identified. CM available for any changes. DC Plan: Independent Date Signed: 03/02/2018 11:35 AM Electronically Signed By:Taylor Martinez RN
--- NOTE | 2018-03-05 21:35 | GOP ---
[f rep st] OPERATIVE REPORT DATE OF OPERATION: 02/28/2018 SURGEON: Yordan Clements MD SOFT IRON INSPECTOR: Kellie Kaur NP. PREOPERATIVE DIAGNOSIS: Transient ischemic attack and critical carotid stenosis. POSTOPERATIVE DIAGNOSIS: Transient ischemic attack and critical carotid stenosis. PROCEDURE PERFORMED: A left carotid endarterectomy with electroencephalographic monitoring. Cervica l node biopsy. FINDINGS: Patient was found to have no EEG changes during the procedure. He had adequate backflow f rom the internal carotid stump. He had a very tight, over 90% stenosis extending well up the interna l carotid artery, which was mostly calcified. DESCRIPTION OF PROCEDURE: The patient was taken to the operating room where he received satisfactory general endotracheal anesthesia. He was systemically heparinized prior to induction of general anes thesia. He was placed in the supine position, prepped and draped in the usual sterile fashion. An i ncision was made along the anterior border of the sternocleidomastoid muscle. Dissection extended do wn through the platysma and subcutaneous tissue and then through the superficial fascia. The carotid arterial tree was dissected free. Common carotid artery was controlled with a vessel loop. The com mon facial vein was then dissected free and doubly ligated with 2-0 silk and divided. Some lymph nod es in the area were dissected free and sent to Pathology. The carotid arterial tree was then readily exposed with the vessel loops encircling the common caroti d, internal carotid, and external carotid arteries. The inferior thyroid artery was controlled with a silk clip. After adequate exposure was achieved, additional heparin was given and after adequate c irculation time, the vessels were occluded with vessel loops. An arteriotomy was made in the common carotid artery and extended up through the dense plaque and tight opening into the internal carotid. Adequate backflow was present, and the expeditious endarterectomy was then done removing the plaque with a good feathered end being obtained in the internal carotid artery. All debris was a nd flushed away. A shunt was then placed in the artery and circulation was restored. There were no changes with cross-clamping or with the shunt placement in the EEG or vital signs. A Dacron patch wa s then fashioned for the arteriotomy site and sutured in place with a running Hemashield 7 suture. W hen the suture line was near complete, the vessels were again occluded and the shunt was removed. Al l vessels were flushed. The suture line was then completed, and flow was reestablished up the graphic manager al carotid artery and then up the internal carotid artery. Had no EEG changes or other difficulties. Arteriotomy appeared to be hemostatic. Heparin was reversed with protamine. It was sprayed with s ome topical thrombin. It was also closed in layers using 3-0 Vicryl for the fascia, 3-0 Vicryl for t he subcutaneous tissue, and 4-0 Monocryl subcuticular stitch for the skin. All layers were infiltrat ed with 0.5% Marcaine. There were no complications. Blood loss was less than 100 cc. Taken to [facility] in good condition. /[id number]/MODL
== END 2018-03-02 11:01 | disposition home or self-care (01) | DRG 38 ==
LOC: F2N 13:40 → F3E 03-01 16:39
PROVIDERS: ADMIT Surgery; ATTEND Surgery
PROC: 03CL0ZZ Extirpation of Matter from Left Internal Carotid Artery, Open Approach (ICD-10-PCS; principal; 2018-02-28 11:30)
PROC: 03UJ0JZ Supplement Left Common Carotid Artery with Synthetic Substitute, Open Approach (ICD-10-PCS; principal; 2018-02-28 11:30)
PROC: 03CJ0ZZ Extirpation of Matter from Left Common Carotid Artery, Open Approach (ICD-10-PCS; principal; 2018-02-28 11:30)
DX: I65.23 Occlusion and stenosis of bilateral carotid arteries (principal); I25.10 Atherosclerotic heart disease of native coronary artery without angina pectoris; I10 Essential (primary) hypertension; R91.1 Solitary pulmonary nodule; E87.1 Hypo-osmolality and hyponatremia; Z95.5 Presence of coronary angioplasty implant and graft; Z87.891 Personal history of nicotine dependence; Z79.82 Long term (current) use of aspirin
CPT/HCPCS: 70450-PO; 70496-PO; 70498-PO; 82565-PO; 85520-90; C1768; J0690; J1100; J1644; J2001; J2405; J2704; J2720; J2765; Q9967

== ENCOUNTER 2018-03-15 08:50 | Inpatient (IN) | payer OTHER, MEDICARE ==
[2018-03-15] MEDS ORDERED: ceFAZolin 2 GM/DEXTROSE 100 ML IV ONE (09:27)
[2018-03-15] MEDS ORDERED: NS 1,000 ML IV ONE ×2 (09:29→10:30)
--- NOTE | 2018-03-15 10:58 | PDHPUP ---
History & Physical Update H&P update statement: This history and physical update is based on an assessment of the patient which was completed after admission or registration (within 24 hours), but prior to the surgery/procedure. H&P update: H&P reviewed & patient examined, changes noted H&P changes: s/p L CEA. Now here for R CEA. Risks and options reviewed. Hyponatremic last hospital admission, hospitalist team was involved in care. Normal Na+ today on preop labs.
[2018-03-15] MEDS ORDERED: THROMBIN (BOVINE) 20,000 UNIT SPRAY TP ONE (11:21)
[2018-03-15] MEDS ORDERED: PROTAMINE SULFATE 50 MG/5 ML VIAL IVP ONE (11:21)
[2018-03-15] MEDS ORDERED: BUPIVACAINE 0.25% 30 ML SDV ONE (11:21)
--- NOTE | 2018-03-15 11:45 | PDANEPAE ---
ANE History of Present Illness R CEA ANE Past Medical History - Cardiovascular History Hx Hypertension: Yes Hx Coronary Artery / Peripheral Vascular Disease: Yes Cardiovascular History Comment: HYPERLIPIDEMIA. CARDIAC STENTS X3 - Pulmonary History Hx COPD: No Hx Asthma/Reactive Airway Disease: No Hx Recent Upper Respiratory Infection: No Hx Oxygen in Use at Home: No Hx Sleep Apnea: No Sleep Apnea Screening Result - Last Documented: Negative - Neurologic History Hx Cerebrovascular Accident: No Hx Seizures: No Hx Dementia: No - Endocrine History Hx Diabetes: No Hypothyroid: No Hyperthyroid: No Obesity: no - Renal History Hx Renal Disorders: No - Liver History Hx Hepatic Disorders: No - Neurological & Psychiatric Hx Hx Neurological and Psychiatric Disorders: No - Cancer History Hx Cancer: No - Congenital Disorder History Hx Congenital Disorders: No - GI History GERD: no Hx Gastrointestinal Disorders: No - Other Health History Other Health History: NEG - Chronic Pain History Chronic Pain: No - Surgical History Prior Surgeries: L CEA. STENTS CARDIAC 2000 X3. BONE SPUR R FOOT GREAT TOE ANE Review of Systems Review of Systems: - Exercise capacity METS (RN): 5 METS ANE Patient History - Allergies Allergies/Adverse Reactions: No Known Allergies Allergy (Verified 03/09/18 11:48) - Home Medications Home Medications: Ipratropium 0.06% Nasal [Atrovent 0.06% Nasal] 1 spray EACHNARE BID 02/26/18 [ Last Taken 03/15/18] Irbesartan [Avapro 150 mg (*)] 150 mg PO BID@,02/26/18 [Last Taken 03/15/18 ] Rosuvastatin Calcium [Crestor 20mg (*)] 20 mg PO DAILY@02/26/18 [Last Taken 1 Day Ago ~03/14/18] Spironolactone [Aldactone] 50 mg PO DAILY@02/26/18 [Last Taken 03/15/18] amLODIPine BESYLATE [Norvasc 2.5 mg (*)] 2.5 mg PO DAILY@02/26/18 [Last Taken 1 Day Ago ~03/14/18] clonIDINE [Catapres (*)] 0.1 mg PO DAILY@0700 02/26/18 [Last Taken 02/26/18] clonIDINE [Catapres (*)] 0.2 mg PO DAILY@1900 02/26/18 [Last Taken 03/15/18] Ezetimibe [Zetia 10 MG (*)] 10 mg PO DAILY@19 03/09/18 [Last Taken 2 Days Ago ~ 03/13/18] Aspirin [Aspirin 325 mg (*)] 325 mg PO DAILY 03/14/18 [Last Taken 03/15/18] - NPO status NPO Since - Liquids (Date): 03/15/18 NPO Since - Liquids (Time): 07:30 NPO Since - Solids (Date): 03/14/18 NPO Since - Solids (Time): 18:30 - Anes Hx Anes Hx: no prior problems - Smoking Hx Smoking Status: Former smoker Marijuana use: No - Family Anes Hx Family Anes Hx: none Family Hx Anesthesia Complications: NEG ANE Labs/Vital Signs - Labs Result Diagrams: 03/15/18 10:15 - Vital Signs Blood Pressure: 144/88 Heart Rate: 52 Respiratory Rate: 16 O2 Sat (%): 98 Height: 176.53 cm Weight: 72.575 kg ANE Physical Exam - Airway Neck exam: FROM Mallampati Score: Class 2 Mouth exam: normal dental/mouth exam - Pulmonary Pulmonary: clear to auscultation - Cardiovascular Cardiovascular: regular rate and rhythym ANE Anesthesia Plan Anesthesia Plan: general endotracheal anesthesia Lines/Monitors: arterial line
[2018-03-15] MEDS ORDERED: fentaNYL 100 MCG/2 ML INJ ONE ×2 (11:54→14:34)
[2018-03-15] MEDS ORDERED: PROPOFOL 200 MG/20 ML VIAL ONE (11:54)
[2018-03-15] MEDS ORDERED: ROCURONIUM 50 MG/5 ML VIAL ONE (11:54)
[2018-03-15] MEDS ORDERED: REMIFENTANIL HCL 1 MG VIAL ONE (11:54)
[2018-03-15] MEDS ORDERED: DEXAMETHASONE 4 MG/ML VIAL ONE (11:55)
[2018-03-15] MEDS ORDERED: PHENYLEPHRINE 10 MG/ML SDV ONE (11:56)
[2018-03-15] MEDS ORDERED: CEFAZOLIN 2 GM/DEXTROSE/100 ML BAG IV ONE (12:02)
[2018-03-15] MEDS ORDERED: ePHEDrine SULFATE 25 MG/5 ML SYR ONE (12:37)
[2018-03-15] MEDS ORDERED: HEPARIN 10,000 UNIT/10 ML MDV (1,000 UNIT/ML) ONE (13:26)
[2018-03-15] MEDS ORDERED: ONDANSETRON 4 MG/2 ML VIAL ONE (13:26)
[2018-03-15] MEDS ORDERED: SUGAMMADEX SODIUM 200 MG/2 ML VIAL IVP ONE (13:45)
[2018-03-15] MEDS ORDERED: LABETALOL HCL 5 MG/ML 20 ML MDV ONE (14:00)
[2018-03-15] MEDS ORDERED: NALOXONE HCL 0.4 MG/ML INJ IVP PRN (14:12)
[2018-03-15] MEDS ORDERED: ENALAPRILAT DIHYDRATE 1.25 MG/ML VIAL IVP PRN ×2 (14:12→14:22)
[2018-03-15] MEDS ORDERED: ONDANSETRON 4 MG/2 ML VIAL IVP PRN ×2 (14:12→14:18)
--- NOTE | 2018-03-15 14:16 | POSTOPPROG ---
Post Op Note Date of Operation: 03/15/18 Surgeon: Yordan Clements Program Aide: Laura Hollins Anesthesiologist: Chai Gannon Anesthesia: GET(General Endotracheal) Pre-op Diagnosis: critical R carotid stenosis, TIA/amaurosis fugax Post-op Diagnosis: same Procedure: R carotid endartectomy c EEG monitoring, c shunt and patch closure, LN bx Findings: ulcerated and granular calcified plaque, large soft LN over artery Inf/Abcess present in the surg proc area at time of surgery?: No EBL: 50-100 Complications: none Specimen(s): plaque and cervical LN to pathology
[2018-03-15] MEDS ORDERED: ENALAPRILAT DIHYDRATE 1.25 MG/ML VIAL ONE (14:18)
[2018-03-15] MEDS ORDERED: OXYCODONE/APAP 5/325 TAB PO PRN (14:18)
[2018-03-15] MEDS ORDERED: HYDROmorphONE/DILAUDID 1 MG/ML INJ IVP PRN (14:18)
[2018-03-15] MEDS ORDERED: NS 1,000 ML IV SCH (14:30)
[2018-03-15] MEDS: fentaNYL 100 MCG/2 ML INJ IVP PRN ×2 (14:36→14:46)
--- NOTE | 2018-03-15 14:37 | POSTANESTH ---
Post Anesthetic Evaluation Cardiovascular Status: Similar to Pre-Op Cond Respiratory Status: Normal, Stable Level of Consciousness/Mental Status: Can Participate in Eval Pain Control: Adequate, Prn Tx Ordered Nausea/Vomiting Control: Adequate, Prn Tx Ordered Complications Possibly Related to Anesthesia: None Noted
--- NOTE | 2018-03-15 15:24 | PDMN ---
Medical Necessity Medical necessity: IP surgery per [facility] cpt 16039 R CEA
[2018-03-15] MEDS: IRBESARTAN 150 MG TAB PO SCH (18:44)
[2018-03-15] MEDS ORDERED: amLODIPine BESYLATE 5 MG TAB PO SCH (19:00)
[2018-03-15] MEDS ORDERED: ROSUVASTATIN CALCIUM 10 MG TAB PO SCH (19:00)
[2018-03-15] MEDS ORDERED: EZETIMIBE 10 MG TAB PO SCH (19:00)
[2018-03-15] MEDS: IPRATROPIUM 0.06% NASAL SPRAY EACHNARE SCH (21:57)
[2018-03-15] MEDS ORDERED: traZODone 50 MG TAB PO SCH (22:15)
[2018-03-16] MEDS: SPIRONOLACTONE 50 MG TAB PO SCH ×2 (08:01→08:10)
[2018-03-16] MEDS: IPRATROPIUM 0.06% NASAL SPRAY EACHNARE SCH (08:09)
[2018-03-16] MEDS ORDERED: ASPIRIN 325 MG TAB PO SCH (09:00)
[2018-03-16] MEDS: IRBESARTAN 150 MG TAB PO SCH (09:17)
[2018-03-16 10:48] VITALS: BP 123/63
--- NOTE | 2018-03-16 11:35 | SOAPPROG ---
DEREK Progress Note Assessment/Plan: Assessment: STATUS POST RIGHT CAROTID ENDARTERECTOMY DOING WELL/AFEBRILE/NEURO INTACT/WOUND OKAY/SWALLOWING WELL Plan: HOME TODAY 03/16/18 11:34 Objective: Vital Signs Temp Pulse Resp BP Pulse Ox 36.7 C 58 L 14 123/63 H 96 03/16/18 07:35 03/16/18 10:00 03/16/18 10:00 03/16/18 10:00 03/16/18 10:00 Laboratory Results 03/15/18 10:15 03/15/18 03/16/18 03/17/18 05:59 05:59 05:59 Intake Total 1265 Output Total 1275 Balance -10 ICD10 Worksheet Patient Problems: Problems Problem Status Onset Carotid stenosis, bilateral Acute
[2018-03-17] MEDS ORDERED: ENOXAPARIN 40 MG/0.4 ML SYR SC SCH (09:00)
--- NOTE | 2018-03-18 02:18 | GOP ---
[f rep st] OPERATIVE REPORT DATE OF OPERATION: 03/15/2018 SURGEON: Yordan Clements MD PREOPERATIVE DIAGNOSIS: Critical right carotid stenosis. POSTOPERATIVE DIAGNOSIS: Critical right carotid stenosis. PROCEDURE PERFORMED: Right carotid endarterectomy with EEG monitoring. FINDINGS: Patient was found to have a very tight and ulcerated soft plaque obstructing the internal carotid origin. He had no significant EEG changes, and he awoke normally moving all extremities and neurologically intact. DESCRIPTION OF PROCEDURE: Patient was taken to the operating room where he received a satisfactory g eneral endotracheal anesthesia by Dr. Gannon after being systemically heparinized prior to induction o f anesthesia. He was positioned, prepped and draped in the usual sterile fashion. Incision was made along the anterior border of the sternocleidomastoid muscle and carried down through the platysma an d subcutaneous tissue. Hemostasis was carefully obtained. Superficial fascia was incised. The thompson tid arterial tree was then exposed and dissected free. The common facial vein was multiply ligated a nd divided exposing the common carotid, external carotid, and internal carotid arteries, which were a ll dissected free and controlled with vessel loops well above the site of the plaque. After adequate exposure was achieved, additional heparin was given, and after adequate circulation time, the vessel s were occluded. Arteriotomy was made in the common femoral artery and extended up through the plaqu e into the normal internal carotid artery. Backflow of the internal carotid was less than expected h aving had a left carotid endarterectomy on the other side. Expeditious endarterectomy was then done removing the plaque with a good feathered end. All debris w as washed out and removed. A shunt was then put in place to supplement flow. Again, there were no s ignificant EEG changes. Arteriotomy was then closed with a Dacron Hemashield patch and sutured in pl lilia with a Hemashield 7 suture. As we neared the end of the suture line, the shunt was clamped and r emoved and all vessels were flushed. Suture line was then completed without difficulty. All vessels had been flushed and flow was first established through the external carotid and then through the in ternal carotid. There were no significant EEG changes. Suture line appeared to be hemostatic. Hepa rin was reversed with protamine. The wound was sprayed with some topical thrombin and closed in laye rs with 3-0 Vicryl for the cervical fascia, 3-0 Vicryl for the platysma and subcutaneous tissue. Hem ostasis had been thoroughly obtained after reversal of the protamine. Skin was closed with a running 4-0 Monocryl subcuticular suture. Wounds were infiltrated with 0.5% Marcaine. He tolerated the pro cedure quite well. There were no complications. He was taken to the recovery room in good condition . /[id number]/MODL
--- NOTE | 2018-03-23 08:36 | GDS ---
[f rep st] DISCHARGE SUMMARY DISCHARGE DIAGNOSES: 1. Critical right carotid stenosis. 2. History of amaurosis fugax. 3. Recent left carotid endarterectomy. OTHER DIAGNOSES: Include arthritis, coronary artery disease with history of coronary stents, closed head injury, hypercholesteremia, hypertension, and seasonal allergies. PROCEDURES: Left carotid endarterectomy with EEG monitoring and patch closure. INTRAOPERATIVE FINDINGS: Patient was found to have a very tight and ulcerated soft plaque obstructin g the internal carotid origin. He had no significant EEG changes and awoke normally, moving all extr emities and neurologically intact. HOSPITAL COURSE: The patient is a 72-year-old male with status post recent left carotid endarterecto my, who underwent a right carotid endarterectomy with Dr. Clements on 03/15/2018. The procedure was unc omplicated and he tolerated it well. Please see intraoperative findings above. The patient was initially cared for in the ICU. He was stable overnight. His neurological exam christian ined intact. His pain was controlled. He was eager for discharge to home. DISCHARGE INSTRUCTIONS: Patient was discharged to home in stable condition with plans for outpatient followup. /[id number]/MODL
== END 2018-03-16 12:16 | disposition home or self-care (01) | DRG 39 ==
LOC: F3N 08:50 → F2N 15:33
PROVIDERS: ADMIT Surgery; ATTEND Surgery
DX: I65.21 Occlusion and stenosis of right carotid artery (principal); I10 Essential (primary) hypertension; E78.5 Hyperlipidemia, unspecified; Z95.5 Presence of coronary angioplasty implant and graft; Z87.891 Personal history of nicotine dependence
CPT/HCPCS: 88323-90; 88342; C1768; J0690; J1100; J1644; J2370; J2405; J2704; J2720; J3010

== ENCOUNTER 2018-03-18 19:20 | Observation (INO) | payer OTHER, MEDICARE ==
--- NOTE | 2018-03-18 20:00 | EDPHY ---
HPI/HX/ROS/PE/MDM Narrative: CHIEF COMPLAINT: Hypertension, headache HPI: The patient is a 72 y/o male with cardiac disease history arriving with his at the referral of his surgeon for evaluation of hypertension and mild headache. He's had a left carotid endarterectomy on 02/28/18 and a right endarterectomy on 03/15/18, 3 days ago. Since then he's had a "low-grade" headache , but says "like most things I feel great." He checked his blood pressure today and found it high in the 200s systolic so he called his surgeon who referred him to the ED for evaluation. The patient says, "I'm episcopal about taking my meds but it's possible I didn't take them this morning" and goes on to say, "I definitely didn't take them." He did take his evening medications including amlodipine, losartan, a diuretic, and clonidine at 18:15, almost 2 hours ago. He denies severe pain, weakness, paresthesias, vision changes, confusion, chest pain, dyspnea, fever, or other complaints. He is scheduled to follow up with his surgeon next . REVIEW OF SYSTEMS: Aside from elements discussed in the HPI, a comprehensive 10-point review of systems was reviewed and is negative. PMH: 1. CAD - multiple coronary stents 2. Bilateral carotid endarterectomies. Left - 02/28/18, right - 03/15/[address] Clements. 3. Hypertension 4. Hyperlipidemia 5. Arthritis 6. Hyponatremia SOCIAL HISTORY: at bedside. Two children. Former smoker. Former alcohol abuse, sober since 1998. PCP: Dr. Starks, surgeon: Dr. Clements, ict support and test engineers: Dr. Wall. Prior medical records reviewed including post-op history 03/07/18 and operative note 03/15/18. PHYSICAL EXAM: General:Patient is alert, in no acute distress. BP 177/104. ENT:Eyes are normal to inspection. ENT inspection normal. Neck: Bandage over right lateral neck, otherwise normal inspection. Full range of motion. Respiratory:No respiratory distress. Breath sounds normal bilaterally. Cardiovascular: Regular rate and rhythm. Strong peripheral pulses. Normal cap refill. Abdomen:The abdomen is nontender to palpation. There are no peritoneal signs. Back: Normal to inspection. No tenderness to palpation. Skin: Normal color. No rash. Warm and dry. Extremities: Normal appearance. Full range of motion. Neuro: Oriented x3. Normal motor function. Normal sensory function. ED Course: This is a 72 y/o male 3 days post-op from a right carotid endarterectomy who presents with hypertension. He did not take his morning medications, but did take his evening medications almost 2 hours prior to arrival. His BP here is 177 /104. Exam is unremarkable. Plan for IV, labs, surgery consultation. 2001: Consulted with Dr. Martin, surgeon. He recommends admission and will consult. Spoke with hospitalist service. Dr. Be accepts admission. General Time Seen by Provider: 03/18/18 19:33 Initial Vital Signs: Initial Vital Signs Temperature (C) 36.5 C 03/18/18 19:24 Heart Rate 73 03/18/18 19:24 Respiratory Rate 16 03/18/18 19:24 Blood Pressure 177/104 H 03/18/18 19:24 O2 Sat (%) 94 03/18/18 19:24 O2 Delivery Mode Room Air Allergies/Adverse Reactions: No Known Allergies Allergy (Verified 03/09/18 11:48) Home Medications: Medication Instructions Recorded Ipratropium 0.06% Nasal [Atrovent 1 spray EACHNARE BID 02/26/18 0.06% Nasal] Irbesartan [Avapro 150 mg (*)] 150 mg PO BID@09,02/26/18 Spironolactone [Aldactone] 50 mg PO DAILY@02/26/18 amLODIPine BESYLATE [Norvasc 2.5 2.5 mg PO DAILY@02/26/18 mg (*)] clonIDINE [Catapres (*)] 0.1 mg PO DAILY@0700 02/26/18 clonIDINE [Catapres (*)] 0.2 mg PO DAILY@1900 02/26/18 Ezetimibe [Zetia 10 MG (*)] 10 mg PO DAILY@03/09/18 Aspirin [Aspirin 325 mg (*)] 325 mg PO DAILY 03/14/18 Ezetimibe [Zetia 10 MG (*)] 10 mg PO DAILY@19 tab 03/16/18 Ipratropium 0.06% Nasal [Atrovent 1 sprays EACHNARE BID mdi 03/16/18 0.06% Nasal] Irbesartan [Avapro 150 mg (*)] 150 mg PO BID@, tab 03/16/18 Rosuvastatin Calcium [Crestor] 20 mg PO DAILY@19 tab 03/16/18 Spironolactone [Aldactone] 50 mg PO DAILY@07 tab 03/16/18 amLODIPine BESYLATE [Norvasc 5 mg 2.5 mg PO DAILY@19 tab 03/16/18 (*)] clonIDINE [Catapres (*)] 0.2 mg PO DAILY@1900 tab 03/16/18 traZODone [traZODONE 50MG (*)] 50 mg PO HS tab 03/16/18 Departure - Departure Disposition: [facility] Inpatient Acute Clinical Impression: Hypertension Qualifiers: Hypertension type: unspecified Qualified Code(s): I10 - Essential (primary) hypertension Post-operative complication Qualifiers: Surgical complication system/body Area: circulatory system Surgical complication type: other Qualified Code(s): I97.89 - Other postprocedural complications and disorders of the circulatory system, not elsewhere classified Condition: Fair Referrals: Shane Starks MD [Primary Care Provider] - As per Instructions Report Scribed for: Kelechi Hill Report Scribed by: Viridiana Palacio Date of Report: 03/18/18 Time of Report: 19:42 Physician Review and Approval Statement: Portions of this note were transcribed by an ED scribe. I personally performed the history, physical exam, and medical decision making; and confirm the accuracy of the information in the transcribed note.
[2018-03-18] MEDS ORDERED: LABETALOL HCL 5 MG/ML 20 ML MDV IVP ONE (20:03)
[2018-03-18] MEDS ORDERED: ONDANSETRON DISINTEGRATING 4 MG TAB PO PRN (20:14)
[2018-03-18] MEDS ORDERED: ONDANSETRON 4 MG/2 ML VIAL IVP PRN (20:14)
[2018-03-18 20:23] LABS: PLATELET COUNT 316 10^3/uL (150-400)
--- NOTE | 2018-03-18 21:38 | GCON ---
[f rep st] CONSULTATION DATE OF CONSULTATION: 03/18/2018 CHIEF COMPLAINT: Headaches. HISTORY OF PRESENT ILLNESS: This is a 72-year-old male status post right-sided carotid endarterectom y performed this last Wednesday by my partner, Dr. Clements. He was subsequently sent home on Wednesday, feeling well, although did endorse a low-grade headache throughout the remainder of the week. He sana led the answering service earlier [facility], and I spoke with him. He was vehement that he had taken h is blood pressure medicines, and that his blood pressure was 120s. He subsequently rechecked his blo od pressure, and said that his systolic was over 200. I [facility] Here in the ED, he states that he feels well. His headache is waxing and waning. He has no stroke-t ype symptoms, and otherwise feels well. He does endorse now that he may have forgotten to take his a .m. blood pressure medications today. He does endorse taking his medications this evening at 6 p.m. Other than the headache, he feels well. Again, denies pain, both postop and incisional pain, and th e headache is currently resolving in the emergency department. PAST MEDICAL HISTORY: Coronary artery disease, status post stenting; carotid stenosis bilateral; hyp ertension; hyperlipidemia; arthritis; hyponatremia. PAST SURGICAL HISTORY: Multiple orthopedic procedures, coronary stents, left carotid endarterectomy performed February 28; right carotid endarterectomy performed March 15. SOCIAL H[place]ORY[place]. Former smoker, former drinker. No illicit drug use. FAMILY HISTORY: Noncontributory. CURRENT MEDICATIONS: Reviewed. REVIEW OF SYSTEMS: A full 10-point review was performed. PHYSICAL EXAMINATION: VITAL SIGNS: Temp 36.5. Blood pressure initially was 177/104, this has now r esolved down to 130/80. Heart rate 73, respirations 16, and he is 94% on room air. CONSTITUTIONAL: He is alert, in no apparent distress, and appears comfortable. HEENT: Eyes, his pupils are equal, r ound, reactive to light and accommodation. He has anicteric sclerae. His extraocular movements are intact. Ears, nose, mouth, throat: He has moist mucous membranes. His hearing is normal. His ears appear normal. He does have some very mild tongue deviation to the right side. His smile is otherw ise symmetric. NECK: His incision on the left is well healed. His incision on the right is covered with Steri-Strips, it is flat, nonpulsatile. CARDIOVASCULAR: He has a regular rate and rhythm. RE SPIRATORY: He has no respiratory distress, rales, or rhonchi. GI: He has normoactive bowel sounds. He is soft, nontender, nondistended. SKIN: Warm, normal color. No rashes or abrasions. MUSCULOS KELETAL: Full strength. No tenderness. Normal range of motion in all 4 extremities. NEUROLOGIC: He is alert and oriented x3. His cranial nerves 2-12 are intact. He does have a slight marginal jamar bular palsy on the right side, likely from retraction. He has no other stroke-type symptoms. PSYCHI ATRIC: He is interacting appropriately. He is not anxious or encephalopathic. LYMPH/HEME/IMMUNOLOG IC: No groin, supraclavicular, or axillary lymphadenopathy is appreciated. LABORATORY: White blood cell count normal at 7, H and H 13 and 38, platelets normal at 316. Manager Target ry showed a low sodium at 128, which is chronic. Creatinine of 0.6. ASSESSMENT AND PLAN: 72-year-old male status post carotid endarterectomy with headaches and poorly c ontrolled blood pressure. Agree with medical admission for blood pressure control. I do not feel th at the patient currently has any stroke-type symptoms. More than likely, he did forget to take his bl ood pressure medication earlier today, which resulted in his high blood pressures. Will at least mon itor him overnight to make sure that everything looks okay. May need some titration of his home meds , but at this point in time looks stable. I discussed my findings with him as well as the ED physician. Will follow along with you. /[id number]/MODL
[2018-03-18] MEDS ORDERED: traZODone 50 MG TAB PO PRN (21:41)
--- NOTE | 2018-03-18 22:24 | GHP ---
[f rep st] HISTORY AND PHYSICAL DATE OF ADMISSION: 03/18/2018 CHIEF COMPLAINT: Hypertension. PRIMARY SURGEON: Dr. Clements PRIMARY PARK ATTENDANT: Padilla Wall MD HISTORY OF PRESENT ILLNESS: A 72-year-old male with history of a TIA February 28, and CTA revealing bilateral carotid stenosis. Underwent left carotid enterectomy 03/05, and then right CEA 03/17/2018. At time of discharge, he says his blood pressure has been stable. He may have forgotten to take his morning blood pressure medications today. He reports a constant headache since the surgery. Denies chest pain, shortness of breath, loss of vision. He says he does not miss a dose of any of his medications. He has been on Norvasc, losartan, clonidine, and a diuretic for years. He took his blood pressure today and found it to be systolic greater than 200s, and called the surgeon, who referred him to the ER. Headache now resolved with improved BP. REVIEW OF SYSTEMS: I completed a 10-point review of systems. Negative except as noted in HPI. PAST MEDICAL HISTORY: 1. Transient ischemic attack, February 2018. 2. Bilateral carotid stenosis with endarterectomies, left 02/25/2018, right 01/2018. 3. Hypertension. 4. Hyperlipidemia. 5. Arthritis. 6. Hyponatremia. 7. Coronary artery disease with PCI x3 to LAD in 2000. 8. Pulmonary nodule. PAST SURGICAL HISTORY: Bilateral CEA, toe surgery, LASIK, sinus surgery. FAMILY HISTORY: Father with a stroke and MS. SOCIAL HISTORY: Lives in [place] with his of 50 years. Quit smoking in 1978. Quit alcohol in 1998. ALLERGIES: None. HOME MEDICATIONS: Aspirin 325 mg daily, doxycycline 50 mg daily, Crestor 20 mg daily, Avapro 150 mg b.i.d., Zetia 10 mg daily. Trazodone 100 mg q.h.s., clonidine 0.2 at 7 p.m., 0.1 in the morning, Norvasc 2.5 daily, spironolactone 50 mg daily, trazodone 50 q.h.s. p.r.n. PHYSICAL EXAM: VITAL SIGNS: Temperature 36.5, blood pressure 177/104 on admission, now 119/75 after labetalol. Heart rate in the 60s. Respirations 16. 95% on room air. GENERAL: Well appearing, sitting up in bed, smiling. HEENT: PERRLA. Moist mucous membranes. Right carotid incision clean, dry, and intact. CV: Regular rate and rhythm, +2 pitting edema up to shins. LUNGS. Clear. No crackles. GI: Soft, nontender, nondistended. Positive bowel sounds. : No Mathew. MUSCULOSKELETAL: 5/5 upper and lower extremity strength. NEURO: 2 through 12 intact. No focal deficits. PSYCH: Alert and oriented x3. LABORATORY DATA: WBC 7, hemoglobin 13, hematocrit 39, platelets 316. Sodium 128, potassium 4.2, chloride 99, carbon dioxide 26, anion gap 3, creatinine 0.6 , glucose 98, calcium 9.1. ASSESSMENT/PLAN: 1. Hypertensive urgency: Symptomatic with headache. No evidence of end-organ damage. Normal creatinine. We will check an EKG. He took all of his evening blood pressure medications right before the emergency room. He received a dose of labetalol 10 in the emergency room and blood pressure has normalized. Headache resolved. Will monitor in the PCU on telemetry overnight. 2. Bilateral carotid stenosis: Status post recent endarterectomies. Dr. Martin will follow along. 3. Coronary artery disease: Aspirin, Zetia. 4. Hyponatremia: This appears to be near his baseline 130-135. Diuretic may be contributing. Will repeat in the morning. 5. Diet: Cardiac. 6. Deep vein thrombosis prophylaxis: Sequential compression devices. 7. Patient warrants observation admission given hypertensive urgency, warranting telemetry and serial blood pressures. /[id number]/MODL MTDD
[2018-03-18] MEDS ORDERED: IPRATROPIUM 0.06% NASAL SPRAY EACHNARE SCH (22:30)
[2018-03-19] MEDS: ACETAMINOPHEN 325 MG TAB PO PRN ×2 (04:47→09:30)
--- NOTE | 2018-03-19 06:10 | CPEKG ---
Heart Rate: 65 RR Interval: 923 P-R Interval: 176 QRSD Interval: 96 QT Interval: 464 QTC Interval: 483 P Madison: 30 QRS Madison: 17 T Wave Madison: 72 EKG Severity - BORDERLINE ECG - EKG Impression: SINUS RHYTHM EKG Impression: BORDERLINE T ABNORMALITIES, ANT-LAT LEADS EKG Impression: BORDERLINE PROLONGED QT INTERVAL Electronically Signed By: Peña Duarte 24-Mar-2018 21:28:39
[2018-03-19] MEDS ORDERED: ASPIRIN 325 MG TAB PO SCH (07:00)
[2018-03-19] MEDS ORDERED: SPIRONOLACTONE 50 MG TAB PO SCH (07:00)
[2018-03-19] MEDS ORDERED: DOXYCYCLINE HYCLATE 100 MG CAP/TAB PO SCH (07:00)
[2018-03-19] MEDS ORDERED: IRBESARTAN 150 MG TAB PO SCH (09:00)
--- NOTE | 2018-03-19 09:00 | SOAPPROG ---
SOAP Progress Note Assessment/Plan: Assessment: s/p R CEA on 03/15 Persistent frontal headache BP ranging 120-more than [address] to rule out stroke/hyperpefusion Discussed case with Dr. Arnold. Want SBP <150 Continue inpatient S: Feeling well except for headache O: Sitting in bed, talkative Neuro intact Strength equal Incision cdi Resolving ecchymosis CTAB regular rate Plan: 03/19/18 08:58 Objective: Vital Signs Temp Pulse Resp BP Pulse Ox 36.7 C 68 18 180/96 H 94 03/19/18 07:09 03/19/18 07:09 03/19/18 07:09 03/19/18 07:09 03/19/18 07:09 03/18/18 03/19/18 03/20/18 05:59 05:59 05:59 Intake Total 300 Balance 300 ICD10 Worksheet Patient Problems: Problems Problem Status Onset Hypertension Acute Post-operative complication Acute Carotid stenosis, bilateral Acute
[2018-03-19] MEDS ORDERED: LABETALOL HCL 5 MG/ML 20 ML MDV IVP ONE (09:28)
--- NOTE | 2018-03-19 10:14 | HOSPPROG ---
Hospitalist Progress Note Assessment/Plan: 72 yo M w cad, recent CEA admitted w htn, FIGUEROA FIGUEROA: attributable to htn NC head CT unremarkable and neuro exam non focal htn: historically well controlled on regimen denies missing doses of clonidine will increase amlodipine to 5 hs follow up w fanestil this week recent CEA: incisions c/d/i seen by surgery dispo: likley home later if bp OK Subjective: case d/w dr juarez Objective: Vital Signs Temp Pulse Resp BP Pulse Ox 36.7 C 62 18 150/85 H 94 03/19/18 07:09 03/19/18 09:51 03/19/18 07:09 03/19/18 09:51 03/19/18 07:09 03/18/18 03/19/18 03/20/18 05:59 05:59 05:59 Intake Total 300 Balance 300 - Physical Exam Constitutional: no apparent distress, appears nourished Eyes: PERRL, anicteric sclera Ears, Nose, Mouth, Throat: moist mucous membranes, hearing normal Cardiovascular: regular rate and rhythym, no murmur, rub, or gallop, systolic murmur Respiratory: no respiratory distress, no rales or rhonchi Gastrointestinal: normoactive bowel sounds, soft, non-tender abdomen Genitourinary: no bladder fullness, No ramirez in urethra Skin: warm, normal color Musculoskeletal: full muscle strength ICD10 Worksheet Patient Problems: Problems Problem Status Onset Hypertension Acute Post-operative complication Acute Carotid stenosis, bilateral Acute
--- NOTE | 2018-03-19 12:12 | ASMTCMCOM ---
CM Note CM Note Notes: 03/19/2018 Case Management Note Met w/pt to discuss d/c needs. Pt is to [facility] [phone] (h) [phone] (cell). Pt has hired out housekeeping and lawn care. Both pt and still drive and have no difficulties obtaining groceries and preparing meals. Pt was independent in ADL's prior to admission. There are no PT or OT evals ordered. SPENCE signed. Case Management d/c poc: independent with followup as directed. Case Management available if needs change. Date Signed: 03/19/2018 12:12 PM Electronically Signed By:Maira Bishop RN
--- NOTE | 2018-03-19 15:07 | GDS ---
[f rep st] DISCHARGE SUMMARY DISCHARGE DIAGNOSES: 1. Recent bilateral carotid endarterectomy. 2. Hypertensive urgency with headache. 3. Coronary disease. Please see admission history and physical by Dr. Peggy Be. Patient presented yesterday with a headache and elevated blood pressure into the 200s. He is complia nt with his blood pressure medicines, which include clonidine. He denies missing doses. Upon presen tation, the patient is found to be euvolemic. He had a negative noncontrast head CT. Upon receiving his blood pressure medications, they were up and down as high as 180/90. This morning, it is 128/74 . I have increased his amlodipine from 2 and a half in the evening to 5 in the evening, advising to take his blood pressure and follow up with Dr. Sergio Starks, his primary care physician. /[id number]/MODL
--- NOTE | 2018-03-19 15:12 | ASDISCHSUM ---
Discharge Information Plan Status:Home with No Needs Medically Cleared to Leave:03/19/2018 Discharge Date:03/19/2018 CM D/C Disposition:Home, Routine, Self-Care ADT D/C Disposition: Projected Discharge Date:03/19/2018 Transportation at D/C:Family Discharge Delay Reason: Follow-Up Date:03/19/2018 Discharge Slot: Final Diagnosis: Placement Information Patient Contact Information Contact Name:COTY Relationship: Address:[address] [place] [address] City:[place] Alternate Phone: State/Zip Code:[place] [address] Email: Financial Information Financial Class:Medicare Primary Plan Desc:MEDICARE OUTPATIENT Primary Plan Number:[id number] Secondary Plan Desc:[employer]/MDR SUPPLEMENT Secondary Plan Number:[id number] Assessment Information [facility] CM Progress Note CM Note CM Note Notes: 03/19/2018 Case Management Note Met w/pt to discuss d/c needs. Pt is to [facility] [phone] (h) [phone] (cell). Pt has hired out housekeeping and lawn care. Both pt and still drive and have no difficulties obtaining groceries and preparing meals. Pt was independent in ADL's prior to admission. There are no PT or OT evals ordered. BEBE signed. Case Management d/c poc: independent with followup as directed. Case Management available if needs change. Date Signed: 03/19/2018 12:12 PM Electronically Signed By:Maira Bishop RN Intervention Information Intervention Type:*BEBE-Signed Date of Service:03/19/2018 12:08 PM Patient Type:Observation Staff Member:BENNETT Bishop, [facility] Hours: Discipline: Severity: Comment:
--- NOTE | 2018-03-19 15:13 | ASMTLACE ---
LACE Length of stay for Answers: Less than 1 day current admission Acuity / Level of Answers: No Care: Did the patient have an inpatient admission? Comorbidities - select Answers: Cerebrovascular disease all that apply (CVA, TIA, aneurysms, vasc ular dementia) Coronary Artery Disease Other Notes: HTN, pulmonary nodule, arthritis, # of Emergency department Answers: 5-8 visits in the last 6 months Score: 8 Date Signed: 03/19/2018 03:12 PM Electronically Signed By:Maira Bishop RN
[2018-03-19] MEDS ORDERED: amLODIPine BESYLATE 5 MG TAB PO SCH (15:15)
[2018-03-19 17:30] VITALS: BP 156/83
[2018-03-19] MEDS ORDERED: EZETIMIBE 10 MG TAB PO SCH (19:00)
[2018-03-19] MEDS ORDERED: ROSUVASTATIN CALCIUM 20 MG TAB PO SCH (19:00)
[2018-03-19] MEDS ORDERED: traZODone 100 MG TAB PO SCH (21:00)
== END 2018-03-19 17:46 | disposition home or self-care (01) ==
LOC: F2W 21:30
PROVIDERS: ADMIT Internal Medicine; ATTEND Internal Medicine
DX: I16.0 Hypertensive urgency (principal); R51 Headache; I25.10 Atherosclerotic heart disease of native coronary artery without angina pectoris; Z98.890 Other specified postprocedural states; Z87.891 Personal history of nicotine dependence
CPT/HCPCS: 70450; 93005; 99285; G0378; J2405

== ENCOUNTER → 2018-07-05 | Outpatient (CLI) | payer OTHER, MEDICARE | LOC: BHFA 09:30 | PROVIDERS: ATTEND Internal Medicine Cardiovascular Disease | DX: I25.10 Atherosclerotic heart disease of native coronary artery without angina pectoris (principal) | CPT/HCPCS: 78452; 93017; A9500; J2785 ==

== ENCOUNTER 2018-10-21 18:35 | Observation (INO) | payer OTHER, MEDICARE ==
--- NOTE | 2018-10-21 19:17 | EDPHY ---
H & P Time Seen by Provider: 10/21/18 18:49 HPI/ROS: CHIEF COMPLAINT: Abdominal pain HISTORY OF PRESENT ILLNESS: The patient is a 73-year-old male with a history of vascular disease including cardiac stents and bilateral carotid endarterectomy who presents emergency department with new onset abdominal pain. Patient states he drank a protein shake this morning. He feels this is the cause. At 3:00 p.m. He developed abdominal cramping. This is bandlike mid to lower abdominal pain. It is worsening. He has had nausea. He forced himself to vomit 1 time. This was nonbloody. He has had multiple episodes of nonbloody diarrhea. No fevers or chills. No flank pain. No dysuria frequency. No chest pain or shortness of breath. REVIEW OF SYSTEMS: 10 systems were reveiwed and are negative with the exception of the elements mentioned in the history of present illness. Past Medical/Surgical History: Includes hypertension, coronary artery disease, TIA, hyperlipidemia, arthritis, hyponatremia, pulmonary nodule Past surgical history: Bilateral carotid endarterectomy, toe surgery, Lasik, sinus surgery Social history: The patient does not smoke. Smoking Status: Former smoker Physical Exam: 36.9, 183/88, 58, 18, 97% on room air GENERAL: Well-appearing, in no acute distress, alert. HEENT: Eyes normal to inspection, normal pharynx, no signs of dehydration. NECK: Normal, supple. RESPIRATORY: Clear to auscultation bilaterally, no rales, rhonchi or wheezing. CVS: Regular rate and rhythm, no rubs, murmurs, or gallops. ABDOMEN: Soft, mid abdominal tenderness palpation. This is more pronounced in the right lower quadrant. Nondistended, no organomegaly. No rebound or guarding BACK: Normal to inspection, no CVA tenderness. SKIN: Normal color, no rash, warm, dry. No pallor. EXTREMITIES: No pedal edema, no calf tenderness, no Homans sign or cords, no joint swelling. NEURO/PSYCH: Alert and oriented, normal mood and affect, normal motor sensory exam. Constitutional: Initial Vital Signs Temperature (C) 36.9 C 10/21/18 18:42 Heart Rate 58 L 10/21/18 18:42 Respiratory Rate 18 10/21/18 18:42 Blood Pressure 183/88 H 10/21/18 18:42 O2 Sat (%) 97 10/21/18 18:42 O2 Delivery Mode Nasal Cannula O2 (L/minute) 2 Allergies/Adverse Reactions: No Known Allergies Allergy (Verified 10/21/18 18:44) Home Medications: Medication Instructions Recorded clonIDINE [Catapres (*)] 0.1 mg PO DAILY@0700 02/26/18 Aspirin [Aspirin 325 mg (*)] 325 mg PO DAILY@03/14/18 Ezetimibe [Zetia 10 MG (*)] 10 mg PO DAILY@19 tab 03/16/18 Ipratropium 0.06% Nasal [Atrovent 1 sprays EACHNARE BID mdi 03/16/18 0.06% Nasal] Irbesartan [Avapro 150 mg (*)] 150 mg PO BID@, tab 03/16/18 Rosuvastatin Calcium [Crestor] 20 mg PO DAILY@19 tab 03/16/18 Spironolactone [Aldactone] 50 mg PO DAILY@07 tab 03/16/18 clonIDINE [Catapres (*)] 0.2 mg PO DAILY@1900 tab 03/16/18 Doxycycline Hyclate 50 mg PO DAILY@03/18/18 traZODone [traZODONE 100MG (*)] 100 mg PO HS 03/18/18 traZODone [traZODONE 50MG (*)] 50 mg PO HS PRN 03/18/18 amLODIPine BESYLATE [Norvasc 5 mg 5 mg PO BID #60 tab 03/19/18 (*)] amLODIPine BESYLATE [Norvasc 5 mg 5 mg PO DAILY@19 #1 tab 03/19/18 (*)] Medical Decision Making ED Course/Re-evaluation: In the emergency department I discussed possible etiologies with the patient. I answered all of his questions. An IV was placed. Laboratory studies were obtained. Due the patient's right lower quadrant tenderness palpation and previous vascular issues a CT with IV contrast was ordered. 2010: The patient was feeling anxious. He was given Ativan 1 mg IV. [place] [address]. Patient's chemistry panel is notable for slight hyponatremia. Patient's LFTs and lipase are normal. CT of the abdomen pelvis: Please refer the dictated report by Dr. Richardson. Patient has a small bowel obstruction. There is no free air. There is noted free fluid. No visible mass. I discussed case with Dr. Bree Hernandes. She was in the emergency department to evaluate the patient. Dr. Hernandes will admit. Pt is aware. Differential Diagnosis: My differential includes but is not limited to small-bowel obstruction, perforation, volvulus, intussusception, appendicitis, mesenteric ischemia, gastroenteritis - Data Points Laboratory Results: Laboratory Results 10/21/18 19:50 10/21/18 19:50 10/21/18 10/21/18 10/21/18 19:51 19:50 19:50 WBC 15.92 10^3/uL H 10^3/uL (3.80-9.50) RBC 5.01 10^6/uL 10^6/uL (4.40-6.38) Hgb 15.5 g/dL g/dL (13.7-17.5) POC Hgb 16.7 gm/dL gm/dL (13.7-17.5) Hct 44.1 % % (40.0-51.0) POC Hct 49 % % (40-51) MCV 88.0 fL fL (81.5-99.8) MCH 30.9 pg pg (27.9-34.1) MCHC 35.1 g/dL g/dL (32.4-36.7) RDW 12.7 % % (11.5-15.2) Plt Count 259 10^3/uL 10^3/uL (150-400) MPV 9.9 fL fL (8.7-11.7) Neut % (Auto) 89.4 % H % (39.3-74.2) Lymph % (Auto) 3.9 % L % (15.0-45.0) Montague % (Auto) 5.8 % % (4.5-13.0) Eos % (Auto) 0.2 % L % (0.6-7.6) Baso % (Auto) 0.3 % % (0.3-1.7) Nucleat RBC Rel Count 0.0 % % (0.0-0.2) Absolute Neuts (auto) 14.23 10^3/uL H 10^3/uL (1.70-6.50) Absolute Lymphs (auto) 0.62 10^3/uL L 10^3/uL (1.00-3.00) Absolute Monos (auto) 0.93 10^3/uL H 10^3/uL (0.30-0.80) Absolute Eos (auto) 0.03 10^3/uL 10^3/uL (0.03-0.40) Absolute Basos (auto) 0.04 10^3/uL 10^3/uL (0.02-0.10) Absolute Nucleated RBC 0.00 10^3/uL 10^3/uL (0-0.01) Immature Gran % 0.4 % % (0.0-1.1) Immature Gran # 0.07 10^3/uL 10^3/uL (0.00-0.10) POC Sodium 138 mEq/L mEq/L (135-145) Sodium 132 mEq/L L mEq/L (135-145) POC Potassium 3.3 mEq/L mEq/L (3.3-5.0) Potassium 3.5 mEq/L mEq/L (3.5-5.2) POC Chloride 97 mEq/L mEq/L (97-110) Chloride 97 mEq/L mEq/L (97-110) Carbon Dioxide 22 mEq/l mEq/l (22-31) POC Total CO2 22 mEq/L mEq/L (22-31) Anion Gap 13 mEq/L mEq/L (6-14) POC BUN 30 mg/dL H mg/dL (7-23) BUN 32 mg/dL H mg/dL (7-23) Creatinine 0.8 mg/dL mg/dL (0.7-1.3) POC Creatinine 0.9 mg/dL mg/dL (0.7-1.3) Estimated GFR > 60 Glucose 161 mg/dL H mg/dL (70-100) POC Glucose 170 mg/dL H mg/dL (70-100) Calcium 9.4 mg/dL mg/dL (8.5-10.4) Total Bilirubin 0.8 mg/dL mg/dL (0.1-1.4) Conjugated Bilirubin 0.3 mg/dL mg/dL (0.0-0.5) Unconjugated Bilirubin 0.5 mg/dL mg/dL (0.0-1.1) AST 30 IU/L IU/L (17-59) ALT 35 IU/L IU/L (21-72) Alkaline Phosphatase 79 IU/L IU/L (38-126) POC Troponin I Total Protein 7.6 g/dL g/dL (6.3-8.2) Albumin 4.4 g/dL g/dL (3.5-5.0) Lipase 144 IU/L IU/L (23-300) 10/21/18 19:49 WBC RBC Hgb POC Hgb Hct POC Hct MCV MCH MCHC RDW Plt Count MPV Neut % (Auto) Lymph % (Auto) Montague % (Auto) Eos % (Auto) Baso % (Auto) Nucleat RBC Rel Count Absolute Neuts (auto) Absolute Lymphs (auto) Absolute Monos (auto) Absolute Eos (auto) Absolute Basos (auto) Absolute Nucleated RBC Immature Gran % Immature Gran # POC Sodium Sodium POC Potassium Potassium POC Chloride Chloride Carbon Dioxide POC Total CO2 Anion Gap POC BUN BUN Creatinine POC Creatinine Estimated GFR Glucose POC Glucose Calcium Total Bilirubin Conjugated Bilirubin Unconjugated Bilirubin AST ALT Alkaline Phosphatase POC Troponin I 0.00 ng/mL ng/mL (0.00-0.08) Total Protein Albumin Lipase Medications Given: Discontinued Medications Fentanyl (Sublimaze) 100 mcg IVP EDNOW ONE Stop: 10/21/18 19:33 Last Admin: 10/21/18 19:38 Dose: 100 mcg Sodium Chloride (Ns) 500 mls @ 0 mls/hr IV EDNOW ONE; Wide Open PRN Reason: Protocol Stop: 10/21/18 19:33 Last Admin: 10/21/18 19:37 Dose: 500 mls Lorazepam (Ativan Injection) 1 mg IVP EDNOW ONE Stop: 10/21/18 20:09 Last Admin: 10/21/18 20:12 Dose: 1 mg Ondansetron HCl (Zofran) 4 mg IVP EDNOW ONE Stop: 10/21/18 19:33 Last Admin: 10/21/18 19:34 Dose: 4 mg Point of Care Test Results: Chemistry 10/21/18 10/21/18 19:51 19:49 POC Sodium 138 mEq/L mEq/L (135-145) POC Potassium 3.3 mEq/L mEq/L (3.3-5.0) POC Chloride 97 mEq/L mEq/L (97-110) POC Total CO2 22 mEq/L mEq/L (22-31) POC BUN 30 mg/dL H mg/dL (7-23) POC Creatinine 0.9 mg/dL mg/dL (0.7-1.3) POC Glucose 170 mg/dL H mg/dL (70-100) POC Troponin I 0.00 ng/mL ng/mL (0.00-0.08) ISTAT H&H 10/21/18 19:51 POC Hgb 16.7 gm/dL gm/dL (13.7-17.5) POC Hct 49 % % (40-51) Departure - Departure Disposition: [facility] Inpatient Acute Clinical Impression: Small bowel obstruction Abdominal pain Qualifiers: Abdominal location: lower abdomen, unspecified Qualified Code(s): R10.30 - Lower abdominal pain, unspecified Condition: Good Instructions: Acute Abdominal Pain (ED) Referrals: Shane Starks MD [Primary Care Provider] - As per Instructions
[2018-10-21] MEDS ORDERED: fentaNYL 100 MCG/2 ML INJ IVP ONE (19:32)
[2018-10-21] MEDS ORDERED: ONDANSETRON 4 MG/2 ML VIAL IVP ONE (19:32)
[2018-10-21] MEDS ORDERED: NS 500 ML IV ONE (19:32)
[2018-10-21 19:59] LABS: PLATELET COUNT 259 10^3/uL (150-400)
[2018-10-21] MEDS ORDERED: LORazepam 2 MG/ML INJ IVP ONE (20:08)
[2018-10-21] MEDS ORDERED: IOHEXOL 300 mgI/ML (OMNIPAQUE) 150 ML BTL IV ONE (20:12)
[2018-10-21] MEDS ORDERED: ONDANSETRON DISINTEGRATING 4 MG TAB PO PRN (21:49)
[2018-10-21] MEDS ORDERED: ONDANSETRON 4 MG/2 ML VIAL IVP PRN (21:49)
[2018-10-21] MEDS ORDERED: ACETAMINOPHEN 325 MG TAB PO PRN (21:49)
[2018-10-21] MEDS ORDERED: LIDOCAINE 2% JELLY 6 ML TOPICAL SYR ONE (23:06)
[2018-10-22] MEDS ORDERED: traZODone 50 MG TAB PO PRN (00:05)
[2018-10-22] MEDS: NS 1,000 ML IV SCH ×3 (00:05→10:06)
[2018-10-22] MEDS ORDERED: traZODone 100 MG TAB ONE (00:07)
--- NOTE | 2018-10-22 04:08 | SOAPPROG ---
SOAP Progress Note Assessment/Plan: Assessment: Evaluated at 3:45 am Less distension No pain Sleeping and awoke easily Had BM Plan: 10/22/18 04:08 Objective: Vital Signs Temp Pulse Resp BP Pulse Ox 37.1 C 80 16 141/75 H 90 L 10/21/18 23:51 10/21/18 23:51 10/21/18 23:51 10/21/18 23:51 10/21/18 23:51 10/20/18 10/21/18 10/22/18 05:59 05:59 05:59 Intake Total 1050 Output Total 60 Balance 990 ICD10 Worksheet Patient Problems: Problems Problem Status Onset Abdominal pain Acute Small bowel obstruction Acute Carotid stenosis, bilateral Acute Hypertension Acute Post-operative complication Acute
[2018-10-22 05:42] LABS: PLATELET COUNT 252 10^3/uL (150-400)
--- NOTE | 2018-10-22 06:35 | GHP ---
[f rep st] HISTORY AND PHYSICAL DATE OF ADMISSION: 10/21/2018 CHIEF COMPLAINT: Small bowel obstruction. HISTORY OF PRESENT ILLNESS: A 73-year-old with peripheral vascular disease, cardiac stents, and thompson tid endarterectomies, who presented with abdominal pain. He drank a protein shake with 25 g of prote in and feels like this precipitated his event. He developed abdominal cramping. He tried to have em esis. DICTATION ENDS HERE /[id number]/MODL
--- NOTE | 2018-10-22 07:01 | GCON ---
[f rep st] CONSULTATION DATE OF CONSULTATION: 10/21/2018 CHIEF COMPLAINT: Hypertension and small-bowel obstruction. HISTORY OF PRESENT ILLNESS: The patient is a pleasant 73-year-old gentleman who was found to have ev idence of small-bowel obstruction by CT imaging at the [facility]. Th e hospitalist service was consulted as he had quite elevated blood pressure readings initially noted with a systolic of 200/89. He denied any complaints of any headaches, chest pain, or difficulty surendra thing. I reviewed the case with Dr. Hernandes with General Surgery and his exam is improving, so the cur rent plan is to monitor him closely overnight without the plan for surgical intervention at this time . PAST MEDICAL HISTORY: Transient ischemic attack in February of 2018, bilateral carotid artery stenosis s tatus post bilateral endarterectomies, coronary artery disease with a history of PCI x3 to his LAD in 2000, hypertension, hyperlipidemia. PAST SURGICAL HISTORY: Bilateral carotid endarterectomies, LASIK surgery. MEDICATIONS: BuSpar 15 mg daily, chlorthalidone 150 mg daily, Zetia 10 mg daily, Avapro 150 mg twice a day, Crestor 20 mg daily, trazodone 150 mg nightly. ALLERGIES: No known drug allergies. FAMILY HISTORY: Father with history of vascular disease including a stroke and a myocardial infarcti on. SOCIAL HISTORY: The patient lives in [place]. He is . He is a former smoker, quitting in 1978. REVIEW OF SYSTEMS: CONSTITUTIONAL: No complaints of any fevers or chills. ENT: No recent upper re spiratory illnesses. CARDIOVASCULAR: No complaints of any chest pains or palpitations or syncopal ep isodes. RESPIRATORY: No complaints of shortness of breath or productive cough. GI: Positive for a bdominal discomfort and abdominal distention. No nausea or vomiting : No report of any difficulty with urination. NEUROLOGIC: No complaints of any headaches or focal weakness. HEMATOLOGIC: No hi story of any deep vein thrombosis or pulmonary embolism. PSYCHIATRIC: Patient is on Buspar. ENDOCR INE: No history of polyuria or heat intolerance. SKIN: No new skin rashes. MUSCULOSKELETAL: No f ocal joint pains. PHYSICAL EXAM: VITAL SIGNS: Temperature 36.9, blood pressure initially 200/89, heart rate 76, respi rations 16, saturating 97% on 2 L nasal cannula. GENERAL: Patient appears comfortable. He is resti ng comfortably but arousable. HEENT: Extraocular movements appear intact. No scleral icterus. NECK : Supple. No adenopathy noted. HEART: Regular rate and rhythm. No murmurs. LUNGS: Clear to aus cultation. Normal respiratory effort. ABDOMEN: Soft, nontender. Diminished bowel sounds. : No Mathew catheter in place. EXTREMITIES: No significant pitting edema. NEUROLOGIC: Cranial nerves 2 -12 appear grossly intact with 5/5 strength in extremities. LABS: White blood cell count 15, hemoglobin 15, platelets 259. Sodium 132, potassium 3.5, chloride 97, bicarb 22, BUN 32, creatinine 0.8, glucose of 161, AST 30, ALT 35, alkaline phosphatase 79, lipas e 144. Troponin is negative. IMAGING: CT scan of abdomen showed evidence of small bowel obstruction. ASSESSMENT AND PLAN: 1. Small-bowel obstruction. Clinically, patient does appear to be improving. Case reviewed with Dr Jv Hernandes with General Surgery and the plan is to continue to monitor clinically with no plan for surgi sana intervention at this point in time. The patient has not had any prior abdominal surgeries. 2. Hypertension. Appears to be improving along with improving symptoms of small-bowel obstruction. For now, I will continue with his current medical regimen with no changes. 3. Hyponatremia, likely hypovolemic in nature. Monitor with IV fluids overnight. 4. Leukocytosis, possibly reactive. Monitor for fevers. Otherwise, trend overnight. 5. Deep venous thrombosis prophylaxis. Compression devices for now. No heparin or Lovenox in light of potential need for surgical intervention. I appreciate the opportunity to help out in this patient's care. We will follow along during this ho spitalization. /[id number]/MODL
[2018-10-22] MEDS ORDERED: IRBESARTAN 75 MG TAB PO SCH ×3 (09:00→19:00)
[2018-10-22] MEDS ORDERED: CHLORTHALIDONE 25 MG TAB PO SCH ×2 (09:00→10:00)
[2018-10-22] MEDS ORDERED: IRBESARTAN 150 MG TAB PO SCH ×2 (09:00→19:00)
[2018-10-22] MEDS ORDERED: busPIRone 15 MG TAB PO SCH (09:00)
[2018-10-22 11:25] VITALS: BP 152/83
--- NOTE | 2018-10-22 13:38 | PDDCSUM ---
Discharge Summary Discharge Summary: DISCHARGE SUMMARY Date of Admission Date of Discharge DISCHARGE DIAGNOSES - HOSPITAL COURSE The patient was admitted from the ED and taken to the operating room where they underwent an uneventful []. They were subsequently taken to the PACU and then the general medical floor. The hospital course was uneventful, their diet was advanced to a regular diet which was well tolerated and their pain was well controlled. They were discharged home in stable condition on DISCHARGE MEDICATIONS DISPOSITION FOLLOW UP Follow up with me in the office in 10-14 days for a general post-operative visit
--- NOTE | 2018-10-22 14:27 | ASMTDCNOTE ---
Case Management Discharge Discharge Order Complete? Answers: Yes Patient to Obtain Answers: via Family Medications Transportation Arranged Answers: Family/Friends Transport will Pick (Date 10/22/2018 12:00 AM & Time) Family Notified Answers: Yes Notes: by pt Discharge Comments Notes: Spoke with pt in the room. Pt lives independently with family, admitted for SBO, managed conservatively. No CM needs noted at this time. CM available should needs change. Date Signed: 10/22/2018 02:26 PM Electronically Signed By:Bernice Ken
--- NOTE | 2018-10-22 15:28 | ASDISCHSUM ---
Discharge Information Plan Status:Home with No Needs Medically Cleared to Leave:10/21/2018 Discharge Date:10/22/2018 02:29 PM CM D/C Disposition:Home, Routine, Self-Care ADT D/C Disposition:Home, Routine, Self-Care Projected Discharge Date:10/22/2018 02:29 PM Transportation at D/C:Family Discharge Delay Reason: Follow-Up Date:10/22/2018 02:29 PM Discharge Slot: Final Diagnosis:SBO Placement Information Patient Contact Information Contact Name:COTY Relationship: Address:[address] [place] [address] City:[place] Alternate Phone: State/Zip Code:[place] [address] Email: Financial Information Financial Class:Medicare Primary Plan Desc:MEDICARE OUTPATIENT Primary Plan Number:[id number] Secondary Plan Desc:TAD/MARIA E SUPPLEMENT Secondary Plan Number:[id number] Assessment Information Case Management Discharge Plan Note Case Management Discharge Discharge Order Complete? Answers: Yes Patient to Obtain Answers: via Family Medications Transportation Arranged Answers: Family/Friends Transport will Pick (Date 10/22/2018 12:00 AM & Time) Family Notified Answers: Yes Notes: by pt Discharge Comments Notes: Spoke with pt in the room. Pt lives independently with family, admitted for SBO, managed conservatively. No CM needs noted at this time. CM available should needs change. Date Signed: 10/22/2018 02:26 PM Electronically Signed By:Bernice Ken MADDI LACDavid Length of stay for Answers: Less than 1 day current admission Acuity / Level of Answers: No Care: Did the patient have an inpatient admission? Comorbidities - select Answers: Coronary Artery Disease all that apply Peripheral vascular disease # of Emergency department Answers: 1-2 visits in the last 6 months Score: 4 Date Signed: 10/22/2018 03:28 PM Electronically Signed By:Bernice Ken Intervention Information
[2018-10-22] MEDS ORDERED: ROSUVASTATIN CALCIUM 10 MG TAB PO SCH (19:00)
[2018-10-22] MEDS ORDERED: EZETIMIBE 10 MG TAB PO SCH (19:00)
[2018-10-22] MEDS ORDERED: traZODone 100 MG TAB PO SCH ×2 (21:00→23:45)
== END 2018-10-22 14:29 | disposition home or self-care (01) ==
LOC: F3E 23:32
PROVIDERS: ADMIT Surgery; ATTEND Surgery
PROC: 0D9670Z Drainage of Stomach with Drainage Device, Via Natural or Artificial Opening (ICD-10-PCS; principal; 2018-10-21)
DX: K56.609 Unspecified intestinal obstruction, unspecified as to partial versus complete obstruction (principal); I10 Essential (primary) hypertension; E86.9 Volume depletion, unspecified; E87.1 Hypo-osmolality and hyponatremia; Z95.5 Presence of coronary angioplasty implant and graft; I25.10 Atherosclerotic heart disease of native coronary artery without angina pectoris
CPT/HCPCS: 74018; 74177; 96361; 96374; 96375; 99285; G0378; J2060; J2405; J3010; Q9967; 82435-PO; 82565-PO; 82947-PO; 84132-PO; 84295-PO; 84484-ER; 84520-PO; 85014-ER

== ENCOUNTER → 2018-12-01 | Outpatient (CLI) | payer OTHER, MEDICARE | LOC: CIMAGING 08:56 | PROVIDERS: ATTEND Internal Medicine Hematology & Oncology | DX: R05 Cough (principal) | CPT/HCPCS: 71046-PO ==